=== PATIENT | female | born 1950 | race Caucasian/White ===

== ENCOUNTER 2021-09-27 07:08 | Outpatient (CLI) | payer MEDICARE, OTHER, SELFPAY ==
--- NOTE | ~2021-09-27 | XR_ITS ---
XR hand RT min 3V 09/27/2021 07:37 Indication: Hand pain Procedure: 3 views right hand Comparison: No prior studies for comparison. Findings: There is moderate polyarticular osteoarthritis involving the radiocarpal, triscaphe, first CMC, multiple metacarpophalangeal joints and multiple interphalangeal joints. No erosive changes. Impression: 1: Moderate polyarticular osteoarthritis. Reviewed, dictated and finalized at location B. Impression: 1: Moderate polyarticular osteoarthritis.
--- NOTE | ~2021-09-27 | XR_ITS ---
XR foot LT min 3V 09/27/2021 07:37 Indication: Foot pain Procedure: 4 views left foot Comparison: No prior studies for comparison. Findings: There is polyarticular osteoarthritis, most advanced at the first MTP joint. There is a sma ll degenerative calcaneal enthesophyte. Lisfranc joint intact. No acute fracture or traumatic malalig nment. There are surgical changes consistent with previous hallux valgus repair. Impression: 1: Mild-moderate polyarticular osteoarthritis. Reviewed, dictated and finalized at location B. Impression: 1: Mild-moderate polyarticular osteoarthritis.
--- NOTE | ~2021-09-27 | XR_ITS ---
XR hand LT min 3V 09/27/2021 07:37 Indication: Hand pain Procedure: 3 views left hand Comparison: No prior studies for comparison. Findings: There is moderate polyarticular osteoarthritis involving the radiocarpal, triscaphe, first CMC, multiple metacarpophalangeal joints and multiple interphalangeal joints. No erosive changes. No fracture or traumatic malalignment. No significant soft tissue abnormality. Impression: 1: Moderate-severe polyarticular osteoarthritis. Reviewed, dictated and finalized at location B. Impression: 1: Moderate-severe polyarticular osteoarthritis.
== END 2021-09-27 07:09 | disposition home or self-care (01) ==
LOC: ANHIMG 07:19
PROVIDERS: PCP Family Medicine; Visit Provider Family Medicine
DX: Z78.0 Asymptomatic menopausal state (principal); M19.041 Primary osteoarthritis, right hand; M19.042 Primary osteoarthritis, left hand; M19.072 Primary osteoarthritis, left ankle and foot
CPT/HCPCS: 73130; 73630; 92557; 92567

== ENCOUNTER 2021-09-27 07:46 | Outpatient (CLI) | payer MEDICARE, OTHER, SELFPAY | END 2021-09-27 07:47 | disposition home or self-care (01) | LOC: ANHAUDIO 07:49 | PROVIDERS: PCP Family Medicine; Visit Provider Otolaryngology | DX: H91.93 Unspecified hearing loss, bilateral (principal) | CPT/HCPCS: 92557; 92567 ==

== ENCOUNTER 2021-11-07 06:53 | Outpatient (CLI) | payer MEDICARE, OTHER, SELFPAY ==
--- NOTE | ~2021-11-07 | XR_ITS ---
XR lumbar spine 2-3V DATE: 11/07/2021 07:19 INDICATION: Low back pain. Neck pain. TECHNIQUE: AP, lateral, coned lateral lumbosacral views COMPARISON: None FINDINGS: There is osteopenia. Mild rotatory levoscoliosis of the lumbar spine. There is moderate degenerative disc disease at L1-2, L2-3. Mild degenerative disease at middle grade 1 anterolisthesis at L3-4. Moderate degenerative disc disease at L4-5 and L5-S1, with slight L4-5 anterolisthesis. Degenerative changes apophyseal joints. The lumbar pedicles appear intact. The sacroiliac joints appear unremarkable except for degenerative change. Osteitis pubis. IMPRESSION: Osteopenia Mild rotatory levoscoliosis Multilevel degenerative disc disease Degenerative changes apophyseal joints with associated minimal anterolisthesis at L3-4, slight landon listhesis at L4-5 Osteitis pubis Reviewed, dictated and finalized at location B. IMPRESSION: Osteopenia Mild rotatory levoscoliosis Multilevel degenerative disc disease Degenerative changes apophyseal joints with associated minimal anterolisthesis at L3-4, slight anterolisthesis at L4-5 Osteitis pubis
--- NOTE | ~2021-11-07 | XR_ITS ---
XR cervical spine 4-5V DATE: 11/07/2021 07:19 INDICATION: Neck pain. No injury. TECHNIQUE: AP, open-mouth, lateral, swimmer views COMPARISON: None FINDINGS: There is osteopenia. There is mild levoscoliosis of the cervical spine. There is mild loss of interspace height at C4-5. Moderately severe degenerative disc disease at C5-6 with mild retrolisthesis at this level. Moderately prominent degenerative disease at C6-7. There is prominent degenerative change at the apophyseal joints throughout the cervical spine. Uncovertebral joint spurring is noted in the mid and lower cervical spine, particularly at C5-6. No fracture or dislocation or locked facet or prevertebral soft tissue swelling. IMPRESSION: Cervical spondylosis including multilevel degenerative disc disease, most pronounced at C 5-6, with mild retrolisthesis at this level, as well as prominent degenerative change at the apophyse al and uncovertebral joints Reviewed, dictated and finalized at location B. IMPRESSION: Cervical spondylosis including multilevel degenerative disc disease , most pronounced at C5-6, with mild retrolisthesis at this level, as well as p rominent degenerative change at the apophyseal and uncovertebral joints
== END 2021-11-07 06:54 | disposition home or self-care (01) ==
PROVIDERS: PCP Family Medicine; Visit Provider Family Medicine
DX: M85.88 Other specified disorders of bone density and structure, other site (principal); M51.36 Other intervertebral disc degeneration, lumbar region; M47.892 Other spondylosis, cervical region; M50.30 Other cervical disc degeneration, unspecified cervical region
CPT/HCPCS: 72050; 72100

== ENCOUNTER → 2022-01-07 13:12 | Outpatient (CLI) | payer MEDICARE, OTHER, SELFPAY ==
--- NOTE | ~2022-01-07 | MM_ITS ---
EXAMINATION: MM screening [facility] BI w izabel HISTORY: Screening mammogram TECHNIQUE: Craniocaudal and mediolateral oblique 3-D tomosynthesis images were obtained and synthetic 2-D images were generated. CAD analysis was submitted and interpreted. COMPARISON: 10/22/2018, 10/29/2017, 03/31/2016 BREAST PARENCHYMAL COMPOSITION: There are scattered areas of fibroglandular density. FINDINGS: There is no suspicious mass, calcification, or architectural distortion to suggest malignan cy in either breast. There has been no suspicious interval change. IMPRESSION: 1. No mammographic evidence of malignancy. 2. Recommend routine screening mammography in one year. BI-RADS Category 1: Negative Reviewed, dictated and finalized at location A.
--- NOTE | ~2022-01-07 | DEXA_ITS ---
Bone Density Report Name: CAROL NAVA Age: 71 Sex: Female Ethnicity: White Date of : 1950 Indication: osteopenia; height loss; hysterectomy;postmenopausal Referring Provider: LARS, RAISA Banda Study: Bone densitometry was performed. Exam Date: January 07, 2022 Accession number: [id number] Bone Density: Region BMD T-score Z-score Classification AP Spine (L1-L4) 0.925 -1.1 1.2 Osteopenia Femoral Neck (Left) 0.555 -2.6 -0.7 Osteoporosis Total Hip (Left) 0.650 -2.4 -0.7 Osteopenia Femoral Neck (Right) 0.622 -2.0 -0.1 Osteopenia Total Hip (Right) 0.699 -2.0 -0.3 Osteopenia Total Hip Mean 0.675 -2.2 -0.5 Osteopenia World Health Organization criteria for BMD impression classify patients as: Normal (T-score at or above -1.0), Osteopenia (T-score between -1.0 and -2.5), or Osteoporosis (T-score at or below -2.5). 10-year Fracture Risk: FRAX not reported because: Some T-score for Spine Total or Hip Total or Femoral Neck at or below -2.5 Previous Exams: Region Exam Age BMD T-score BMD Change BMD Change Date g/cm2 vs Baseline vs Previous AP Spine(L1-L4) 01/07/2022 71 0.925 -1.1 -0.035* -0.032* 10/22/2018 67 0.957 -0.8 -0.003 -0.003 03/15/2016 65 0.960 -0.8 Total Hip(Left) 01/07/2022 71 0.650 -2.4 -0.062* -0.040* 10/22/2018 67 0.691 -2.1 -0.022 -0.022 03/15/2016 65 0.713 -1.9 Total Hip(Right) 01/07/2022 71 0.699 -2.0 -0.058* -0.040* 10/22/2018 67 0.739 -1.7 -0.018 -0.018 03/15/2016 65 0.757 -1.5 *Denotes significance at 95% confidence level, LSC for AP Spine = 0.022 g/cm2, LSC for Total Hip = 0.027 g/cm2 Clinical Information Provided by Patient: Has used the following medications: Vitamin D, Calcium Has the following medical conditions: Hysterectomy Patient maximum height was 60 Menopause Age: 46 No regular weight bearing exercise Drinks caffeinated beverages Onset of menses at age 10 Number of children 4 Impression: The patient has osteoporosis, based on the Left Femoral Neck T-score. The BMD for the AP Spine(L1-L4) decreased, changing by -0.032 since the last DXA exam. The BMD for the Total Hip(Left) decreased, changing by -0.040 since the last DXA exam. The BMD for the Total Hip(Right) decreased, changing by -0.040 since the last DXA exam. Discussion: INCREASED RISK OF FRACTURE. BONE DENSITY IS UNDESIRABLY LO
== END ==
PROVIDERS: PCP Family Medicine; Visit Provider Family Medicine
DX: Z12.31 Encounter for screening mammogram for malignant neoplasm of breast (principal); Z78.0 Asymptomatic menopausal state; M85.88 Other specified disorders of bone density and structure, other site; M81.0 Age-related osteoporosis without current pathological fracture; M85.852 Other specified disorders of bone density and structure, left thigh; M85.851 Other specified disorders of bone density and structure, right thigh
CPT/HCPCS: 77063; 77067; 77080

== ENCOUNTER 2022-05-08 10:09 | Outpatient (CLI) | payer MEDICARE, OTHER, SELFPAY ==
--- NOTE | ~2022-05-08 | US_ITS ---
Procedure: Duplex Doppler examination of the bilateral carotids. Indication: Fatigue, carotid bruit Technique: Real time, color-flow and pulse wave Doppler examination of the bilateral carotids was performed. Findings: Watson scale ultrasonography of the right neck demonstrated no significant plaque. There was demonstrat ion of normal color-flow and Doppler waveforms within the right common, internal and external carotid arteries. The peak systolic velocities in the right common, internal and external carotid arteries w ere demonstrated to be 68 cm/sec, 73 cm/sec and 70 cm/sec respectively. The right ICA/CCA ratio was 1 .1.The proximal right internal carotid artery demonstrates 0% stenosis relative to the normal distal artery lumen diameter. Watson scale sonography of the left neck demonstrated no significant plaque. There was demonstration of normal color-flow and wave forms within the left common, internal and external carotid arteries. The peak systolic velocities in the left common, internal and external carotid arteries were demonstrate d to be 75cm/sec, 56 cm/sec and 61 cm/sec respectively. The left ICA/CCA ratio was 0.7. The proximal left internal carotid artery demonstrates 0% stenosis relative to the normal distal artery lumen diam eter. There was antegrade flow demonstrated in the bilateral vertebral arteries. Impression: No hemodynamically significant stenosis of the bilateral internal carotid arteries. Antegrade flow in the bilateral vertebral arteries. Note: The methodology used is an indirect measurement validated against a direct method (such as the NASCET criteria) that compares diameters at the stenosis to the distal ICA. Reviewed, dictated and finalized at location . ATING ROOM ORDERLY Impression: No hemodynamically significant stenosis of the bilateral internal carotid arter ies. Antegrade flow in the bilateral vertebral arteries. Note: The methodology used is an indirect measurement validated against a direct meth od (such as the NASCET criteria) that compares diameters at the stenosis to the distal ICA.
== END 2022-05-08 10:10 | disposition home or self-care (01) ==
PROVIDERS: PCP Family Medicine; Visit Provider Family Medicine
DX: R53.83 Other fatigue (principal); R42 Dizziness and giddiness; R06.09 Other forms of dyspnea
CPT/HCPCS: 93880

== ENCOUNTER 2022-05-20 08:14 | Outpatient (CLI) | payer MEDICARE, OTHER, SELFPAY ==
--- NOTE | 2022-05-20 | EST_ITS ---
Patient Info Name: Heather Sibley Age: 71 years : 1950 Gender: Female Ht: 59 in Wt: 150 lbs BSA: 1.71 m2 HR: 62 bpm BP: 136 / 86 mmHg Technical Quality: Good Exam Date: 05/20/2022 8:55 AM Exam Location: [facility] Patient Status: Outpatient Admit Date: 05/20/2022 Staff Ordering Physician: Amaya, Latonia Banda MD Dental Hygienist: Cuca Pritchett RDCS Attending Provider: elina jennings np Referring Physician: Amaya WHITE; Exercise Technologist: Naomi Deng CT Nurse: DEB MCCAIN Exam Type: CA stress echo Study Info Indications - FATIGUE LOPEZ Treadmill exercise stress echocardiogram is performed. Summary 1. Abnormal marcus stress test for ischemic ST changes by ECG criteria. 2. The stress echocardiographic imaging is normal was good augmentation of all wall segments post-stress without obvious wall motion abnormalities. 3. No exercise-induced chest pain. 4. Good exercise capacity for age. 5. Hypertensive blood pressure response. Stress Echo Findings Left Ventricle Normal left venticular systolic function with no regional wall motion abnormalities noted at rest. No regional wall motion abnormalities noted at rest. Left ventricular wall thickness is mildly increased. Left ventricular end systolic volume decreases post stress. Overall global left ventricular systolic function Improved post stress. No regional wall motion abnormalities noted post stress. Normal augmentation of all wall segments without evidence of ischemia with stress. Right Ventricle Right ventricular chamber dimension is normal. Right ventricular systolic function is normal. Right ventricular chamber dimension is normal. Right ventricular systolic function is normal. Left Atria Left atrial chamber dimension is mildly enlarged. Left atrial chamber dimension is mildly enlarged. Right Atria Right atrial chamber dimension is normal. Right atrial chamber dimension is normal. Protocol: Marcus Stress ECG Details Stage: REST Duration (min): 0 min : 54 sec Speed (mph): 0.0 Grade (%): 0 HR (bpm): 73 SBP (mmHg): 136 DBP (mmHg): 86 METS: --- Stage: STAGE 1 Duration (min): 1 min : 0 sec Speed (mph): 1.7 Grade (%): 10 HR (bpm): 97 SBP (mmHg): 136 DBP (mmHg): 86 METS: --- Stage: STAGE 1 Duration (min): 2 min : 0 sec Speed (mph): 1.7 Grade (%): 10 HR (bpm): 103 SBP (mmHg): 136 DBP (mmHg): 86 METS: --- Stage: STAGE 1 Duration (min): 3 min : 0 sec Speed (mph): 1.7 Grade (%): 10 HR (bpm): 105 SBP (mmHg): 136 DBP (mmHg): 86 METS: --- Stage: STAGE 2 Duration (min): 1 min : 0 sec Speed (mph): 2.5 Grade (%): 12 HR (bpm): 116 SBP (mmHg): 166 DBP (mmHg): 100 METS: --- Stage: STAGE 2 Duration (min): 2 min : 0 sec Speed (mph): 2.5 Grade (%): 12 HR (bpm): 124 SBP (mmHg): 214 DBP (mmHg): 105 METS: --- Stage: STAGE 2 Duration (min): 3 min : 0 sec Speed (mph): 2.5 Grade (%): 12 HR (bpm): 130 SBP (mmHg): 214 DBP (mmHg): 105 METS: --- Sta
== END 2022-05-20 08:15 | disposition home or self-care (01) ==
LOC: ANHCARD 08:18
PROVIDERS: PCP Family Medicine; Visit Provider Family Medicine
DX: R53.83 Other fatigue (principal); R42 Dizziness and giddiness; R06.09 Other forms of dyspnea
CPT/HCPCS: 93351

== ENCOUNTER 2022-09-06 09:27 | Outpatient (CLI) | payer MEDICARE, OTHER, SELFPAY ==
--- NOTE | ~2022-09-06 | CT_ITS ---
CT Scan of the Chest without Contrast: Clinical Indication: Abnormal CT Technique: Contiguous sections were acquired throughout the chest without intravenous contrast. Dose reduction technique was used on this scan by utilizing automated exposure control and iterative recon struction technique. The dose-length product (DLP) was 122.29 mGy-cm. Findings: There is no evidence of any significant mediastinal, hilar or axillary lymphadenopathy. The mediastin al soft tissues appear normal. There is no evidence of pleural or pericardial effusion. There is mild subpleural reticulation, with upper lobe predominance, left worse than right. No suspic ious pulmonary nodule evident. Images through the upper abdomen reveal no abnormalities. Impression: Mild subpleural reticulation, as noted above. Findings could reflect mild chronic interstitial diseas e or other postinflammatory change. Reviewed, dictated and finalized at [facility]. Impression: Mild subpleural reticulation, as noted above. Findings could reflect mild chron ic interstitial disease or other postinflammatory change.
== END 2022-09-06 09:28 | disposition home or self-care (01) ==
LOC: ANHIMG 09:33
PROVIDERS: PCP Family Medicine; Visit Provider Family Medicine
DX: J84.89 Other specified interstitial pulmonary diseases (principal)
CPT/HCPCS: 71250

== ENCOUNTER 2022-10-09 14:00 | Outpatient (RCR) | payer MEDICARE, OTHER, SELFPAY | END 2022-10-09 23:59 | disposition home or self-care (01) | LOC: ANHAUDIO 14:00 | PROVIDERS: PCP Family Medicine; Visit Provider Otolaryngology | DX: Z46.1 Encounter for fitting and adjustment of hearing aid (principal) | CPT/HCPCS: 99199; V5261 ==

== ENCOUNTER 2022-10-23 18:07 | Outpatient (CLI) | payer MEDICARE, OTHER, SELFPAY ==
--- NOTE | 2022-10-23 11:00 | NEURO_ITS ---
Impression: # Complains of numbness of hands with nocturnal paresthesia. # Bilateral Carpal Tunnel Syndrome. # No ulnar neuropathy. # Normal needle/EMG exam. Nerve Conduction Studies Anti Sensory Summary Table Stim Site NR Peak (ms) P-T Amp (?V) Site1 Site2 Delta-P (ms) Dist (cm) Amadeo (m/s) Left Median Anti Sensory (2-3nd Digit) Wrist 4.3 15.5 Wrist 2-3nd Digit 4.3 14.0 33 Wrist 4.2 16.8 Wrist 2-3nd Digit 4.3 14.0 33 Right Median Anti Sensory (2-3nd Digit) Wrist 3.6 18.0 Wrist 2-3nd Digit 3.6 14.0 39 Wrist 3.5 6.0 Wrist 2-3nd Digit 3.6 14.0 39 Left Radial Anti Sensory (Base 1st Digit) Wrist 2.1 24.4 Wrist Base 1st Digit 2.1 0.0 Right Radial Anti Sensory (Base 1st Digit) Wrist 2.3 5.0 Wrist Base 1st Digit 2.3 0.0 Left Ulnar Anti Sensory (5th Digit) Wrist 2.6 24.2 Wrist 5th Digit 2.6 14.0 54 Right Ulnar Anti Sensory (5th Digit) Wrist 2.5 27.4 Wrist 5th Digit 2.5 14.0 56 Motor Summary Table Stim Site NR Onset (ms) O-P Amp (mV) Site1 Site2 Delta-0 (ms) Dist (cm) Amadeo (m/s) Left Median Motor (Abd Poll Brev) Wrist 4.3 4.9 Elbow Wrist 4.3 24.0 56 Elbow 8.6 2.7 Right Median Motor (Abd Poll Brev) Wrist 3.8 5.1 Elbow Wrist 4.5 24.0 53 Elbow 8.3 3.7 Left Ulnar Motor (Abd Dig Minimi) Wrist 2.7 2.6 A Elbow Wrist 4.9 26.0 53 A Elbow 7.6 1.2 Right Ulnar Motor (Abd Dig Minimi) Wrist 2.3 7.0 A Elbow Wrist 4.7 25.0 53 A Elbow 7.0 5.4 F Wave Studies NR F-Lat (ms) L-R F-Lat (ms) Left Median (Mrkrs) (Abd Poll Brev) 28.69 2.16 Right Median (Mrkrs) (Abd Poll Brev) 26.53 2.16 Left Ulnar (Mrkrs) (Abd Dig Min) 27.97 1.10 Right Ulnar (Mrkrs) (Abd Dig Min) 26.88 1.10 EMG Side Muscle Nerve Root Ins Act Fibs Amp Dur Recrt Comment Right 1stDorInt Ulnar C8-T1 Nml Nml Nml Nml Nml Right Ext Indicis Radial (Post Int) C7-8 Nml Nml Nml Nml Nml Right Ext Digitorum Radial (Post Int) C7-8 Nml Nml Nml Nml Nml Right BrachioRad Radial C5-6 Nml Nml Nml Nml Nml Right PronatorTeres Median C6-7 Nml Nml Nml Nml Nml Right Abd Poll Brev Median C8-T1 Nml Nml Nml Nml Nml Left 1stDorInt Ulnar C8-T1 Nml Nml Nml Nml Nml Left Ext Indicis Radial (Post Int) C7-8 Nml Nml Nml Nml Nml Left Ext Digitorum Radial (Post Int) C7-8 Nml Nml Nml Nml Nml Left BrachioRad Radial C5-6 Nml Nml Nml Nml Nml Left PronatorTeres Median C6-7 Nml Nml Nml Nml Nml Left Abd Poll Brev Median C8-T1 Nml Nml Nml Nml Nml Right ABD Dig Min Ulnar C8-T1 Nml Nml Nml Nml Nml Left ABD Dig Min Ulnar C8-T1 Nml Nml Nml Nml Nml MTDD
--- NOTE | 2022-10-24 07:21 | PCNEURO ---
Paper documentation exists on this patient due to [employer] downtime on 10/23/22 from to 00:30-19:30.
== END 2022-10-23 18:08 | disposition home or self-care (01) ==
LOC: ANHNEURO 18:07
PROVIDERS: PCP Family Medicine; Visit Provider Family Medicine
DX: G56.03 Carpal tunnel syndrome, bilateral upper limbs (principal)
CPT/HCPCS: 95886; 95911

== ENCOUNTER 2023-10-03 08:52 | Emergency (ER) | payer MEDICARE, OTHER, SELFPAY ==
--- NOTE | ~2023-10-03 | XR_ITS ---
Left Knee Technique: AP, lateral, and sunrise views were obtained. Clinical History: Pain and swelling Findings: No fracture or dislocation is seen. Osseous alignment is anatomic. Minimal tricompartmental degenerative spurring noted. Soft tissues are unremarkable. No joint effusion is seen. Impression: Minimal tricompartmental degenerative spurring. Reviewed, dictated and finalized at [facility]. Impression: Minimal tricompartmental degenerative spurring.
--- NOTE | 2023-10-03 09:08 | ED.LOWEXIN ---
HPI - Extremity Injury (Lower) General Chief Complaint: Extremity Injury, Lower Stated Complaint: Left Knee Injury Time Seen by Provider: 10/03/23 09:08 Source: patient Mode of arrival: ambulatory Limitations: no limitations History of Present Illness HPI Narrative: 72-year-old female presents with complaint of left knee pain. Patient states she was cutting grass, pushing a lawnmower, and twisted left knee in a hole in her yard. Ambulatory with slight limp. Patient reports mild swelling. No previous pain to left knee. Range of motion decreased due to pain, distal neurovascularly intact. All systems reviewed and negative except as noted above. Related Data Home Medications Medication Instructions Recorded Confirmed No Home Medications 10/23/21 10/03/23 Allergies Allergy/AdvReac Type Severity Reaction Status Date / Time codeine Allergy Mild Nausea Verified 10/03/23 09:11 alendronate sodium Allergy Unknown GI issues Verified 10/03/23 09:11 Review of Systems Review of Systems: CONSTITUTIONAL: Denies fever, chills, or sweats. EYES: Denies visual changes, redness, or discharge. ENT: Denies rhinorrhea, congestion, sore throat, or otalgia. CARDIOVASCULAR: Denies chest pain, palpitations, or edema. RESPIRATORY: Denies cough or dyspnea. GASTROINTESTINAL: Denies abdominal pain, nausea, vomiting, or diarrhea. GENITOURINARY: Denies dysuria or hematuria. SKIN: Denies rash or itching. MUSCULOSKELETAL: Pain and swelling to left knee. NEUROLOGIC: Denies headache, numbness, or weakness. PSYCHIATRIC: Denies anxiety or depression. All other systems reviewed are negative, except as documented in HPI. FORMERLY [facility] Surgical History Surgical History History of bunionectomy History of ear surgery History of foot surgery Family History Family History Father Family history of coronary artery disease Sibling Family history of coronary artery disease Other Breast cancer Depression Diabetes mellitus Heart disease Uterine cancer Social History Social History Smoking status: Never smoker Second hand tobacco smoke exposure: No Alcohol intake: former Alcohol use details: social drinker Substance use: never Substance use type: does not use Living arrangements: with family Occupation/Education: retired Gender identity (if verbalized by the patient): Female Comments At time of signature, agree with nursing past medical, surgical, social and family history. There is no relevant family history pertinent to the presenting complaint. Exam Narrative: GENERAL: This is a well-nourished, well-developed patient, in no apparent distress. HEAD: normocephalic, atraumatic. EYES: PERRL. Sclera clear/white. Vision is grossly intact. EARS: External ears normal NOSE: External nose normal NECK: Neck supple, non-tender without lymphadenopathy, masses or thyromegaly. CARDIOVASCULAR: Regular rate and rhythm without murmurs, gallops, or rubs. RESPIRATORY: Clear to auscultation. Breath sounds equal bilaterally. No wheezes, rales, or rhonchi. SKIN: warm, Dry, intact with no suspicious lesions or rash, good texture and turgor. NEURO: awake, alert, and oriented to person, place and time. There were no obvious focal neurologic abnormalities. EXTREMITIES: Mild swelling to left knee. No deformity. Tenderness to medial aspect of left knee. Range of motion slightly decreased due to pain. Course Course Level of Care: Express Care Visit Vital Signs Vital signs: Reviewed MDM - Extremity Injury (Lower) MDM Narrative Medical decision making narrative: Patient is aware of diagnosis, understands and agrees to treatment plan. Anticipatory guidance given. Patient agrees to follow-up as directed and is aware of reasons to seek care at the emergen
== END 2023-10-03 09:54 | disposition home or self-care (01) ==
PROVIDERS: Emergency Provider Nurse Practitioner Family; PCP Internal Medicine
DX: S83.92XA Sprain of unspecified site of left knee, initial encounter (principal); X50.9XXA Other and unspecified overexertion or strenuous movements or postures, initial encounter
CPT/HCPCS: 73562; 99213; G0463

== ENCOUNTER 2023-11-26 15:31 | Outpatient (CLI) | payer MEDICARE, OTHER, SELFPAY ==
--- NOTE | ~2023-11-26 | CT_ITS ---
EXAMINATION: CT sinus wo con DATE: 11/26/2023 15:57 INDICATION: Chronic sinusitis TECHNIQUE: Computed tomography (CT) of the paranasal sinuses was performed without intravenous contra st. The dose-length product was 290.62 mGy-cm. Automated exposure control and iterative reconstructio n technique were employed. COMPARISON: None FINDINGS: There is mild mucosal thickening of the maxillary sinuses. No significant nasal septal rom ation. There is patency of the ostiomeatal units. No air-fluid levels. No mucoperiosteal reaction. Ma stoids are pneumatized. IMPRESSION: 1. Mild maxillary sinus disease. Reviewed, dictated and finalized at location B.
== END 2023-11-26 15:32 ==
LOC: MICIMG 15:33
PROVIDERS: PCP Internal Medicine; Visit Provider Internal Medicine
DX: J32.0 Chronic maxillary sinusitis (principal)
CPT/HCPCS: 70486

== ENCOUNTER 2023-12-23 07:53 | Outpatient (CLI) | payer MEDICARE, OTHER, SELFPAY ==
--- NOTE | ~2023-12-23 | MR_ITS ---
EXAMINATION: MR IAC wo/w con DATE: 12/23/2023 08:50 INDICATION: Sensorineural hearing loss. Dizziness. Loss of balance. TECHNIQUE: Magnetic resonance imaging (MRI) of the brain, brainstem, and internal auditory canals was performed without and with 12 mL MultiHance intravenous contrast. COMPARISON: Sinuses CT 11/26/2023 FINDINGS: There is no intracranial hemorrhage, acute infarction, or abnormal intracranial mass lesion . There are scattered areas of nonspecific increased T2-weighted signal intensity in the cerebral whi te matter, which is within normal limits for the patient's age. The ventricles are normal in size. T he paranasal sinuses are clear. The mastoid air cells are normal. The internal auditory canals, inner ears, and tympanic cavities are normal. IMPRESSION: 1. Normal aging brain. Reviewed, dictated and finalized at location A. IMPRESSION: 1. Normal aging brain.
== END 2023-12-23 07:54 | disposition home or self-care (01) ==
PROVIDERS: PCP Internal Medicine
DX: H90.3 Sensorineural hearing loss, bilateral (principal); R42 Dizziness and giddiness; R26.89 Other abnormalities of gait and mobility
CPT/HCPCS: 70553; A9577

== ENCOUNTER 2024-02-26 07:44 | Outpatient (CLI) | payer MEDICARE, OTHER, SELFPAY ==
--- NOTE | ~2024-02-26 | MM_ITS ---
EXAMINATION: MM screening [facility] BI w izabel HISTORY: Screening TECHNIQUE: Craniocaudal and mediolateral oblique 3-D tomosynthesis images were obtained and synthetic 2-D images were generated. CAD analysis was submitted and interpreted. COMPARISON: Comparison to multiple prior studies sequentially, with oldest reviewed study dated 05/2017. BREAST PARENCHYMAL COMPOSITION: Not dense: There are scattered areas of fibroglandular density. FINDINGS: There is no evidence of suspicious mass, calcification, or architectural distortion to sugg est malignancy in either breast. There has been no suspicious interval change. IMPRESSION: 1. No mammographic evidence of malignancy. 2. Recommend routine screening mammography in one year. BI-RADS Category 1: Negative Reviewed, dictated and finalized at location B.
== END 2024-02-26 07:45 | disposition home or self-care (01) ==
PROVIDERS: PCP Internal Medicine; Visit Provider Internal Medicine
DX: Z12.31 Encounter for screening mammogram for malignant neoplasm of breast (principal)
CPT/HCPCS: 77063; 77067

== ENCOUNTER 2024-04-01 09:59 | Outpatient (CLI) | payer MEDICARE, OTHER, SELFPAY ==
--- NOTE | ~2024-04-01 | DEXA_ITS ---
Bone Density Report Name: CAROL NAVA Age: 73 Sex: Female Ethnicity: White Date of : 1950 Indication: postmenopausal; screening for osteoporosis; height loss; hysterectomy; rheumatoid arthritis; Referring Provider: ABDIEL LOBO Study: Bone densitometry was performed. Exam Date: April 01, 2024 Accession number: [id number] Bone Density: Region BMD T-score Z-score Classification AP Spine(L1-L4) 0.736 -2.8 -0.4 Osteoporosis Femoral Neck (Left) 0.506 -3.1 -1.0 Osteoporosis Total Hip (Left) 0.635 -2.5 -0.7 Osteoporosis Femoral Neck (Right) 0.590 -2.3 -0.2 Osteopenia Total Hip (Right) 0.679 -2.2 -0.4 Osteopenia Femoral Neck Mean 0.548 -2.7 -0.6 Osteoporosis Total Hip Mean 0.657 -2.3 -0.5 Osteopenia World Health Organization criteria for BMD impression classify patients as: Normal (T-score at or above -1.0), Osteopenia (T-score between -1.0 and -2.5), or Osteoporosis (T-score at or below -2.5). 10-year Fracture Risk: FRAX not reported because: Some T-score for Spine Total or Hip Total or Femoral Neck at or below -2.5 Clinical Information Provided by Patient: Has rheumatoid arthritis Has used the following medications: Vitamin D, Calcium Has the following medical conditions: Hysterectomy Patient maximum height was 60 Menopause Age: 48 Drinks caffeinated beverages Onset of menses at age 10 Number of children 4 Impression: The patient has osteoporosis, based on the Left Femoral Neck T-score. Discussion: INCREASED RISK OF FRACTURE. BONE DENSITY IS UNDESIRABLY LOW AT ONE OR MORE SKELETAL SITES, CONSISTENT WITH POSTMENOPAUSAL OSTEOPOROSIS. This patient's lowest T-score meets the World Health Organization's (WHO) criteria for osteoporosis at one or more sites (T-score -2.5 or below). In untreated patients, the risk of osteoporotic fracture increases approximately two-fold for each 1.0 SD decrease in T-score. Low bone density is not the only risk factor for fracture; also consider factors such as patient's age, frailty or poor health, risk of falling, risk of injury, previous osteoporotic fracture, family history of osteoporosis, cigarette smoking, low body weight, etc. Not everyone with low bone mineral density has osteoporosis; osteomalacia and other metabolic bone disorders should also be considered. Patients who have osteoporosis should be evaluated for specific diseases and conditions (secondary causes) that may cause or contribute to bone loss. The [place] Association [employer] Clinical Endocrinologists (AACE) and National Osteoporosis Foundation (NOF) recommend pharmacologic intervention for all postmenopausal women whose T-score is in this range. The patient should follow a healthful lifestyle (good nutrition with adequate calcium and vitamin D, and appropriate weight-bearing exercise). Follow-Up: Consider a repeat BMD and Vertebral Fracture Assessment (VFA) exam in 2 years or sooner if medically necessary, to reassess this patient's status. Reported by: YAA on 04/01/2024 10:27:00 AM. Reviewed, dictated and finalized at location A.
== END 2024-04-01 10:00 | disposition home or self-care (01) ==
PROVIDERS: PCP Internal Medicine; Visit Provider Internal Medicine
DX: Z78.0 Asymptomatic menopausal state (principal); M85.89 Other specified disorders of bone density and structure, multiple sites; M81.0 Age-related osteoporosis without current pathological fracture
CPT/HCPCS: 77080

== ENCOUNTER 2024-07-13 14:02 | Outpatient (CLI) | payer MEDICARE, OTHER, SELFPAY | END 2024-07-13 14:03 | disposition home or self-care (01) | LOC: ANHNEURO 14:05 | PROVIDERS: PCP Internal Medicine; Visit Provider Internal Medicine | DX: R20.0 Anesthesia of skin (principal); G56.03 Carpal tunnel syndrome, bilateral upper limbs | CPT/HCPCS: 95886; 95911 ==

== ENCOUNTER 2024-09-28 08:53 | Outpatient (CLI) | payer MEDICARE, OTHER, SELFPAY ==
--- OUTSIDE RECORDS SUMMARY | 2024-09-28 09:08 | XMS_ITS | CONTINUITY OF CARE DOCUMENT ---
Author Name elbaalexander elbaalexander Address Unknown Organization [facility] Address [id number] [place] [address] [address] [place] [address] Phone [phone] Care Team Providers Care Stave Log Ripsaw Operator Name Role Phone Sohan Yarbrough MD Unavailable [phone] RAISA SOUSA MD Unavailable RAISA SOUSA MD Unavailable PROBLEMS Condition Status Date Provider Notes Cardiology examination active Sohan Alejandra arthritis active Sohan Yarbrough MD Light headedness active Sohan Yarbrough MD Fatigue active Sohan Yarbrough MD Dyspnea active Yolanda Becker Abnormal stress electrocardiogram active Ashvin Becker ENCOUNTERS Date Type Provider Location Encounter Diag nosis - In-person encounter Office Visit Sohan Yarbrough MD [facility] - In-person encounter Office Visit Sohan Yarbrough MD [facility] Abnormal stress electrocardiogram - In-person encounter Office Visit Sohan Yarbrough MD [facility] Cardiology examinationarthritisLight headednessFatigueDyspnea VITAL SIGNS Date Observation Value Provider Body Mass Index (Ratio) 28.48 kg/m2 Yessy Beckham blood pressure, diastolic 83 mm[Hg] Mi anna Ya blood pressure, systolic 131 mm[Hg] Kyle max Ya oxygen saturation, oximetry 96 % Ashly Ya pulse rate 82 /min Ashly Grace alejandra weight E&M 141 [lb_av] Ashly Grace alejandra respiratory rate E&M 16 /min Apple lal Ames blood pressure, cuff size regular Maddy castillo Ya height E&M 59 [in_i] Ashly Grace alejandra Body Mass Index (Ratio) 30.49 kg/m2 Dyana chris Becker blood pressure, cuff size regular Mendze rrvanessa Gopi blood pressure, diastolic 70 mm[Hg] Ke rri [facility] blood pressure, systolic 122 mm[Hg] Johana riley Gopi oxygen saturation, oximetry 96 % Sindy Gopi respiratory rate E&M 14 /min Sindy Skinny edouard pulse rate 86 /min Sindy Carlin [facility] weight E&M 151 [lb_av] Sindy Raphaeldanettee [facility] height E&M 59 [in_i] Sindy Carlinnfe [facility] Body Mass Index (Ratio) 31.30 kg/m2 Dyana riversflorecita Becker blood pressure, diastolic 87 mm[Hg] An donald Moore blood pressure, systolic 123 mm[Hg] Sloane Moore height E&M 59 [in_i] Mariah Moore blood pressure, cuff size large An donald Moore oxygen saturation, oximetry 97 % Mariah Moore pulse rate 65 /min Mariah Moore weight E&M 155 [lb_av] Mariah Moore ALLERGIES Allergy Name Onset Date Reaction Criticality Status CODIENE High Criticality active HISTORY OF MEDICATION USE Medication Status Instructions Dates Provider Indications Com ments diclofenac sodium 75 mg tablet,delayed release (/EC) active Sohan Yarbrough MD omeprazole 40 mg capsule,delayed release(DR/EC) active Sohan Yarbrough MD escitalopram oxalate 5 mg tablet active Sohan Yarbrough MD sulfasalazine 500 mg tablet,delayed release (DR/EC) active Sohan Yarbrough MD SOCIAL HISTORY Date Observation Value Provider social history E&M S moking History: Denis mcfarland has never smoked. Benji Beckham social history reviewed E&M revi ewed - no changes required Benji Beckham smoking status Never smoker Ashly Erwin and social history E&M S moking History: Denis mcfarland has never smoked. Yolanda Becker social history reviewed E&M revi ewed - no changes required Yolanda Becker smoking status Never smoker Sindy Fransisco lipscomb social history E&M S moking History: Denis mcfarland has never smoked. Sohan Yarbrough MD social history reviewed E&M revi ewed - no changes required Sohan Yarbrough MD smoking status Never smoker Mariah Moore FUNCTIONAL STATUS Date Observation Value Provider Reason Fall Assessment not done medical c ontraindication Mariah Moore INSURANCE PROVIDERS Payer name Policy type / Coverage type [employer] party ID [employer] MEDICARE SECONDARY Commercial insurance com pany [id number] [place] MED[place] B Medicare [id number] ADVANCE DIRECTIVES Name Date DISCUSSED - NO DECISION MADE TREATMENT PLAN Date Name Performer [id number],S,C ardiac cath was normal. I recommend statin therapy for LDL of 200 and calcium score of 148. Pt would like to repeat Lipid Panel. She c/o fatigue. Will obtain Home Sleep study. Benji Beckham [id number],C,C T coronary calcium score is 148 in the LAD. Still symptomatic. In view of the above, I recommend cardiac cath (stress echo showed ischemia by EKG but normal by echo criteria). Yolanda Becker [id number],C,C T coronary calcium score is 148 in the LAD. Still symptomatic. In view of the above, I recommend cardiac cath (stress echo showed ischemia by EKG but normal by echo criteria). Yolanda Becker [id number],C,C T coronary calcium score is 148 in the LAD. Still symptomatic. In view of the above, I recommend cardiac cath (stress echo showed ischemia by EKG but normal by echo criteria). Yolanda Becker [id number],C,P t complains of fatigue, dizziness with walking, dyspnea, no chest pain. She states she had normal echo and stress test at [facility]. Will check for orthostatic BP and check telesentry. Will request her tests and review them. Yolanda Becker [id number],C,P t complains of fatigue, dizziness with walking, dyspnea, no chest pain. She states she had normal echo and stress test at [facility]. Will check for orthostatic BP and check telesentry. Will request her tests and review them. Yolanda Becker [id number],C,P t complains of fatigue, dizziness with walking, dyspnea, no chest pain. She states she had normal echo and stress test at [facility]. Will check for orthostatic BP and check telesentry. Will request her tests and review them. Yolanda Ruizgrover Cardiology:Cardiac c ath was normal. I recommend statin therapy for LDL of 200 and calcium score of 148. Pt would like to repeat Lipid Panel. She c/o fatigue. Will obtain Home Sleep study. Benji Beckham Cardiology:CT saldana ry calcium score is 148 in the LAD. Still symptomatic. In view of the above, I recommend cardiac cath (stress echo showed ischemia by EKG but normal by echo criteria). Yolanda Eugenio Cardiology:CT saldana ry calcium score is 148 in the LAD. Still symptomatic. In view of the above, I recommend cardiac cath (stress echo showed ischemia by EKG but normal by echo criteria). Yolanda Becker Cardiology:CT saldana ry calcium score is 148 in the LAD. Still symptomatic. In view of the above, I recommend cardiac cath (stress echo showed ischemia by EKG but normal by echo criteria). Yolanda Becker Cardiology:Pt compla ins of fatigue, dizziness with walking, dyspnea, no chest pain. She states she had normal echo and stress test at [facility]. Will check for orthostatic BP and check telesentry. Will request her tests and review them. Yolanda Becker Cardiology:Pt compla ins of fatigue, dizziness with walking, dyspnea, no chest pain. She states she had normal echo and stress test at [facility]. Will check for orthostatic BP and check telesentry. Will request her tests and review them. Yolanda Becker Cardiology:Pt compla ins of fatigue, dizziness with walking, dyspnea, no chest pain. She states she had normal echo and stress test at [facility]. Will check for orthostatic BP and check telesentry. Will request her tests and review them. Yolanda Becker Date Name Sleep Study Home LIPID PANEL PROTHROMBIN TIME WIT H INR LIPID PANEL CBC (INCLUDES DIFF/P LT) BASIC METABOLIC PANE L W/EGFR Cardiac Cath - Left - [facility] Monitor - Telemetry (Mobile Cardiac) CT, Coronary Calcium Score Monitor - Telemetry (Mobile Cardiac) HISTORY OF PROCEDURES Procedure Date Procedure Name Provider Procedure Notes S tatus CT- Coronary CA score Sohan Yarbrough MD completed EKG Sohan Yarbrough MD completed
--- OUTSIDE RECORDS SUMMARY | 2024-09-28 09:09 | XMS_ITS | Clinical Summary ---
Author Organization [facility] [address] Address [address] [place] [address] Care Team Providers Care Nursing Consultant Name Role Phone Jessy Duron MD Primary Care Provider Allergies Active Allergy Reactions Criticality Noted Date Comments Codeine Nausea only Low 10/09/2017 Medications calcium carbonate (CALCIUM 500 ORAL) Take by mouth Active ascorbic acid (VITAMIN C) 1,000 mg tablet Take 1,000 mg by mouth daily Active cholecalciferol , vitamin D3, (VITAMIN D3 ORAL) Take 250 mg by mouth daily Active terbinafine (LamISIL) 1 % creamIndication s:Tinea pedis of both feet Apply topically 2 (two) times a day 30 g 1 1 Active albuterol HFA (ProAir HFA) 90 mcg/actuation inhalerIndicati ons:Dyspnea on exertion Inhale 2 puffs every 4 (four) hours as needed for wheezing or shortness of breath 8.5 g 5 1 Active rosuvastatin (CRESTOR) 5 mg tablet Take 1 tablet (5 mg total) by mouth daily 30 tablet 5 1 Active Active Problems Problem Noted Date Diagnosed Date Fatigue 07/26/2020 Assessment & Plan (07/26/2020 3:51 PM CDT): Suspect 2/2 VENKAT. - Referring for sleep study as noted - Avoid driving if sleepy Family history of heart disease 07/26/2020 Assessment & Plan (07/26/2020 3:52 PM CDT): Requests referral to physics faculty member today. Joint stiffness of hand, unspecified laterality 07/26/2020 Assessment & Plan (07/26/2020 3:52 PM CDT): Given prolonged AM stiffness, evaluate for inflammatory arthritis today Hyperlipidemia 07/26/2020 Assessment & Plan (07/26/2020 3:54 PM CDT): Intolerant of unspecified statin for unknown reason. More recently on fenofibrate, but she stopped taking this because she does not like to take medications. - Discussed benefits of statins today and that we can almost always find one that can be tolerated. Will await lipid panel Dyspnea on exertion 07/26/2020 Assessment & Plan (07/26/2020 4:03 PM CDT): No abnormal findings on exam. EKG NSR with no concerning abnormalities, but will not charge as V4 lead was not working at the time. TTE 2018 performed for same indication with Normal left ventricular systolic function. No focal wall motion abnormalities.Impaired diastolic relaxation Grade I. Ejection fraction is visually estimated at 60-65 %. Normal right ventricular systolic function. Mild enlargement of right ventricle. NO sig valve abnormalities. - She will see cardiology - Trial albuterol prn. If helpful, will pursue PFTs Tinea pedis of both feet 07/26/2020 Sensorineural hearing loss (SNHL) of both ears 0 10/06/2018 Assessment & Plan (10/06/2018 3:41 PM CDT): Patient did undergo a complete audiogram while in the office today that showed the right ear to have a moderate SNHL rising to slight SNHL sloping back to moderate SNHL; the left ear showed moderate rising to mild SNHL sloping to moderately severe SNHL. Discrimination scores showed 88% to the right and 100% to the left. Tympanogram revealed hypo compliance bilaterally. Reviewed results with the patient. She is not interested in hearing amplification at this time. Recommend patient repeat audiogram in 6 months if she notes any changes to her hearing or change in the nature of tinnitus. Non-seasonal allergic rhinitis 10/06/2018 Resolved Problems Problem Noted Date Diagnosed Date Resolved Date Multiple injuries 09/22/2014 07/26/2020 Surgical History Surgery Date Site/Laterality Comments HYSTERECTOMY with BSO for endometrial polyps TONSILLECTOMY Medical History Medical History Date Comments High cholesterol Osteopenia Family History Medical History Relation Name Comments Coronary artery disease Brother 1 Coronary artery disease Brother 2 Heart attack Father Hypertension Father Arthritis Mother Dementia Mother Uterine cancer Sister 1 Valvular heart disease Sister 1 Breast cancer Sister 2 Coronary artery disease Sister 2 Relation Name Status Comments Brother 1 Brother 2 Father Mother Alive Sister 1 Sister 2 Social History Tobacco Use Types Packs/Day Years Used Date Smoking Tobacco: Never Smokeless Tobacco: Never Alcohol Use Standard Drinks/Week Comments Yes 0 (1 standard drink = 0.6 oz pur e alcohol) AUDIT-C Answer Date Recorded Q1: How often do you have a drink containing alc ohol? Monthly or less 07/26/2020 Q2: How many drinks containi ng alcohol do you have on a typical day when you are drinking? 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 Gender Identity Not on file Sexual Orientation Not on file Obstetrics History Last Filed Vital Signs Vital Sign Reading Time Taken Comments Blood Pressure 132/76 07/26/2020 7:51 AM CDT Pulse 76 07/26/2020 7:51 AM CDT Temperature 36.6 C (97.9 F) 07/26/2020 7:51 AM CDT Respiratory Rate 16 10/01/2018 9:20 AM CDT Oxygen Saturation 96% 07/26/2020 7:51 AM CDT Inhaled Oxygen Concentration - - Weight 68.5 kg (151 lb) 07/26/2020 7:51 AM CDT Height 147.3 cm (4' 10) 07/26/2020 7:51 AM CDT Body Mass Index 31.56 07/26/2020 7:51 AM CDT Plan of Treatment Not on file Insurance MEDICARE [facility] HE[facility] BENEFIT PLAN MEDICARE [facility] BENEFIT PLAN MEDICARE [facility] HEALTH BENEFIT PLAN Care Teams Nursing Consultant Relationship Specialty Start Date End Date Jessy Duron MD [address] [place] [address] PCP - General Internal Medicine 06/19/20
--- OUTSIDE RECORDS SUMMARY | 2024-09-28 09:09 | XMS_ITS | Data Portability ---
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 Name Role Phone ABDIEL COLLINS Primary Care Provider Assessment Encounter Date Assessment Date Assessment LastModified by Organization Details LastModified Time 09/05/2023 09/05/2023 Will obtain blood work obtain her old records she will see me back in 4 to 6 months she can use some Tylenol as needed for her arthritic complaints [email or web address] Not available 09/05/2023 22:25:46 11/20/2023 11/20/2023 overweight healthy lifestyle care instructions discussed dizziness and sinusitis we will CT scan her sinuses I will see her back after she has a scan and she is done with the antibiotic she can use some nasal spray to either Flonase [id number] or saline nasal spray 2 sprays each nostril 4 times a day for the nasal spray 2 sprays each nostril daily for the Flonase [email or web address] Not available 11/30/2023 20:44:54 12/25/2023 12/25/2023 await final ENT opinion start the Lipitor see me in 2 months Not available 12/25/2023 22:06:47 03/04/2024 03/04/2024 CMP lipid healthy lifestyle care instructions continue atorvastatin I have recommended she see ENT again this is a chronic problem with her ears see me back for months Not available 03/07/2024 22:31:04 07/08/2024 07/08/2024 nerve conduction test treatment of osteoporosis discussed she is going to take pause on that right now dyslipidemia again I told him that I would recommend that she take the atorvastatin she will consider follow up with me in 4 months [email or web address] Not available 08/01/2024 22:02:37 Plan of Treatment Reminders Order Date Submit Date Provider Last Modified By Organization Details Last Modified Time Details Appointments ANY 15 2024 02:00P M Abdiel Collins MD Not available Not available Not available Lab lipid panel, serum 2023 024 COLOME Robby, [address], [place], [address], 05/25/2024 07:07:53 CMP, serum or plasma 2023 024 GAILZANA Barcenas, [address], [place], [address], 05/25/2024 07:07:54 lipid panel, serum 2023 024 [facility] [address], [place], [address], 09/24/2023 13:12:28 T3, free, serum or plasma 2023 024 [facility] [address], [place], [address], 09/24/2023 13:12:32 T4, free, serum 2023 024 [facility] [address], [place], [address], 09/24/2023 13:12:33 TSH, serum or plasma 2023 024 [place] [id number] [facility], [address], [place], [address], 01/07/2024 09:43:05 CBC w/ auto diff 2023 024 GAIL [facility], [address], [place], [address], 09/24/2023 13:12:31 CMP, serum or plasma 2023 024 COLOME [facility], [address], [place], [address], 09/24/2023 13:12:29 vitami n B12 + folate , serum or blood 2023 024 COLOME [facility], [address], [place], [address], 09/24/2023 13:12:30 Referral None record ed. Procedures None record ed. Surgeries None record ed. Imaging nerve conduc tion study - NCS b/l legs added to the arms she is schedu led for July. 2024 025 [facility] [address], [place], [address], 07/22/2024 15:22:02 CT, sinuse s, w/o contra st 2023 024 [facility], [address], [place], [address], 11/27/2023 10:43:21 MAMMO, screen ing, digita l, bilate ral 2023 024 [email or web address] [facility], [address], [place], [address], 03/09/2024 15:26:51 bone densit y 2023 024 [facility], [address], [place], [address], 04/02/2024 15:56:52 Medication Orders Lipito r 10 mg tablet 2023 024 sharon [id number], [address] [facility], [place], [address], 05/28/2024 12:46:25 cefuro lilian axetil 500 mg tablet 2023 024 GAIL [id number], [address] [place], [address], 12/25/2023 10:34:37 Flonas e Allerg y Relief 50 mcg/ac tuatio n nasal spray, suspen dayami 2023 024 [email or web address] [id number], [address] [place], [address], 11/20/2023 14:23:48 Patient TargetsNo targets recorded. Patient Instructions Encounter Date Encounter Id Patient Instructions Last Modified By Organization Details Last Modified Time 11/20/2023 [id number] A healthy lifestyle: care instructions [email or web address] Not available 11/20/2023 14:23:48 03/04/2024 [id number] A healthy lifestyle: care instructions [email or web address] Not available 03/04/2024 17:30:37 Reason for Referral None Reported. Results Created Date Observation Date Name Description Value Unit Range Abnormal Flag Note LastModifiedBy Organization Detail LastModifiedTime 09/23/1909/24/2023 LIPID PANEL cholesterol, total 243 mg/dL 100-19 9 above high normal Not Available [facility] ([facility]) [address] [place], [address], 09/24/2023 13:12:28 09/23/1909/24/2023 LIPID PANEL triglyceride s 114 mg/dL 0-149 Not Available [facility] ([facility]) [address] [place], [address], 09/24/2023 13:12:28 09/23/1909/24/2023 LIPID PANEL HDL cholesterol 79 mg/dL >39 Not Available [facility]) [address] [place], [address], 09/24/2023 13:12:28 09/23/19 24 09/24/2023 LIPID PANEL VLDL cholesterol chinedu 20 mg/dL 5-40 Not Available [facility] ([facility]) [address] [facility] [place], [address], 09/24/2023 13:12:28 09/23/19 24 09/24/2023 LIPID PANEL LDL chol calc (rust) 144 mg/dL 0-99 above high normal Not Available [facility] ([facility]) [address] [place], [address], 09/24/2023 13:12:28 09/23/19 24 09/24/2023 COMP. METAB OLIC PANEL (14) glucose 88 mg/dL 70-99 Not Available [facility] ([facility]) [address] [facility] [place], [address], 09/24/2023 13:12:29 09/23/19 24 09/24/2023 COMP. METAB OLIC PANEL (14) BUN 13 mg/dL 8-27 Not Available [facility] ([facility]) [address] [place], [address], 09/24/2023 13:12:29 09/23/19 24 09/24/2023 COMP. METAB OLIC PANEL (14) creatinine 0.57 mg/dL 0.57-1 .00 Not Available [facility] ([facility]) [address] [place], [address], 09/24/2023 13:12:29 09/23/19 24 09/24/2023 COMP. METAB OLIC PANEL (14) eGFR 95 mL/mi n/1.7 3 >59 Not Available [facility] ([facility]) [address] [place], [address], 09/24/2023 13:12:29 09/23/19 24 09/24/2023 COMP. METAB OLIC PANEL (14) BUN/creatini ne ratio 23 12-28 Not Available [facility] ([facility]) [address] [place], [address], 09/24/2023 13:12:29 09/23/19 24 09/24/2023 COMP. METAB OLIC PANEL (14) sodium 139 mmol/ L 134-14 4 Not Available [facility] ([facility]) [address] [facility], [place], [address], 09/24/2023 13:12:29 09/23/19 24 09/24/2023 COMP. METAB OLIC PANEL (14) potassium 4.2 mmol/ L 3.5-5. 2 Not Available [facility] ([facility] [address] [facility] [place], [address], 09/24/2023 13:12:29 09/23/19 24 09/24/2023 COMP. METAB OLIC PANEL (14) chloride 103 mmol/ L 96-106 Not Available [facility] ([facility] [address] [facility] [place], [address], 09/24/2023 13:12:29 09/23/19 24 09/24/2023 COMP. METAB OLIC PANEL (14) carbon dioxide, total 24 mmol/ L - Not Available [facility] ([facility] [address] [facility] [place], [address], 09/24/2023 13:12:29 09/23/19 24 09/24/2023 COMP. METAB OLIC PANEL (14) calcium 9.0 mg/dL 8.7-10 .3 Not Available [facility] ([facility] [address] [facility] [place], [address], 09/24/2023 13:12:29 09/23/19 24 09/24/2023 COMP. METAB OLIC PANEL (14) protein, total 6.3 g/dL 6.0-8. 5 Not Available [facility] ([facility]) [address] [facility], [place], [address], 09/24/2023 13:12:29 09/23/19 24 09/24/2023 COMP. METAB OLIC PANEL (14) albumin 4.3 g/dL 3.8-4. 8 Not Available [facility] ([facility]) [address] [facility], [place], [address], 09/24/2023 13:12:29 09/23/19 24 09/24/2023 COMP. METAB OLIC PANEL (14) globulin, total 2.0 g/dL 1.5-4. 5 Not Available [facility] ([facility]) [address] [facility], [place], [address], 09/24/2023 13:12:29 09/23/19 24 09/24/2023 COMP. METAB OLIC PANEL (14) A/G ratio 2.2 1.2-2. 2 Not Available [facility] ([facility]) [address] [facility], [place], [address], 09/24/2023 13:12:29 09/23/19 24 09/24/2023 COMP. METAB OLIC PANEL (14) bilirubin, total 0.5 mg/dL 0.0-1. 2 Not Available [facility] ([facility]) [address] [facility], [place], [address], 09/24/2023 13:12:29 09/23/19 24 09/24/2023 COMP. METAB OLIC PANEL (14) alkaline phosphatase 69 IU/L 44-121 Not Available [facility] ([facility]) [address] [facility], [place], [address], 09/24/2023 13:12:29 09/23/19 24 09/24/2023 COMP. METAB OLIC PANEL (14) AST (SGOT) 17 IU/L 0-40 Not Available [facility] ([facility]) [address] [facility], [place], [address], 09/24/2023 13:12:29 09/23/19 24 09/24/2023 COMP. METAB OLIC PANEL (14) ALT (SGPT) 9 IU/L 0-32 Not Available [facility] ([facility]) [address] [facility], [place], [address], 09/24/2023 13:12:29 09/23/19 24 09/24/2023 VITAM IN B12 AND FOLAT E vitamin B12 410 pg/mL 232-12 45 Not Available [facility] ([facility]) [address] [facility], [place], [address], 09/24/2023 13:12:30 09/23/19 24 09/24/2023 VITAM IN B12 AND FOLAT E folate (folic acid), serum 17.6 NG/mL >3.0 A serum folat e sara ntrat ion of less than 3.1 ng/mL is consi dered to repre sent clini chinedu defic iency . Not Available [facility] ([facility]) [address] [facility], [place], [address], 09/24/2023 13:12:30 09/23/19 24 09/24/2023 CBC WITH DIFFE RENTI AL/PL ATELE T WBC 4.9 x10e3 /uL 3.4-10 .8 Not Available [facility] ([facility]) [address] [facility], [place], [address], 09/24/2023 13:12:31 09/23/19 24 09/24/2023 CBC WITH DIFFE RENTI AL/PL ATELE T RBC 4.14 x10e6 /uL 3.77-5 .28 Not Available [facility] ([facility]) [address] [facility], [place], [address], 09/24/2023 13:12:31 09/23/19 24 09/24/2023 CBC WITH DIFFE RENTI AL/PL ATELE T hemoglobin 12.5 g/dL 11.1-1 5.9 Not Available [facility] ([facility]) [address] [facility], [place], [address], 09/24/2023 13:12:31 09/23/19 24 09/24/2023 CBC WITH DIFFE RENTI AL/PL ATELE T hematocrit 36.2 % 34.0-4 6.6 Not Available [facility] ([facility]) [address] [facility], [place], [address], 09/24/2023 13:12:31 09/23/19 24 09/24/2023 CBC WITH DIFFE RENTI AL/PL ATELE T MCV 87 fL 79-97 Not Available [facility] ([facility]) [address] [facility], [place], [address], 09/24/2023 13:12:31 09/23/19 24 09/24/2023 CBC WITH DIFFE RENTI AL/PL ATELE T MCH 30.2 pg 26.6-3 3.0 Not Available [facility] ([facility]) [address] [facility], [place], [address], 09/24/2023 13:12:31 09/23/19 24 09/24/2023 CBC WITH DIFFE RENTI AL/PL ATELE T MCHC 34.5 g/dL 31.5-3 5.7 Not Available [facility] ([facility]) [address] [facility], [place], [address], 09/24/2023 13:12:31 09/23/19 24 09/24/2023 CBC WITH DIFFE RENTI AL/PL ATELE T RDW 12.9 % 11.7-1 5.4 Not Available [facility] ([facility]) [address] [place], [address], 09/24/2023 13:12:31 09/23/19 24 09/24/2023 CBC WITH DIFFE RENTI AL/PL ATELE T platelets 247 x10e3 /uL 150-45 0 Not Available [facility] ([facility]) [address] [facility], [place], [address], 09/24/2023 13:12:31 09/23/19 24 09/24/2023 CBC WITH DIFFE RENTI AL/PL ATELE T neutrophils 52 % notest ab. Not Available [facility] ([facility]) [address] [facility], [place], [address], 09/24/2023 13:12:31 09/23/19 24 09/24/2023 CBC WITH DIFFE RENTI AL/PL ATELE T lymphs 37 % notest ab. Not Available [facility] ([facility]) [address] [facility], [place], [address], 09/24/2023 13:12:31 09/23/19 24 09/24/2023 CBC WITH DIFFE RENTI AL/PL ATELE T monocytes 8 % notest ab. Not Available [facility] ([facility]) [address] [facility], [place], [address], 09/24/2023 13:12:31 09/23/19 24 09/24/2023 CBC WITH DIFFE RENTI AL/PL ATELE T eos 2 % notest ab. Not Available [facility] ([facility]) [address] [facility], [place], [address], 09/24/2023 13:12:31 09/23/19 24 09/24/2023 CBC WITH DIFFE RENTI AL/PL ATELE T basos 1 % notest ab. Not Available [facility] ([facility]) [address] [facility], [place], [address], 09/24/2023 13:12:31 09/23/19 24 09/24/2023 CBC WITH DIFFE RENTI AL/PL ATELE T neutrophils (absolute) 2.5 x10e3 /uL 1.4-7. 0 Not Available [facility] ([facility]) [address] [facility], [place], [address], 09/24/2023 13:12:31 09/23/19 24 09/24/2023 CBC WITH DIFFE RENTI AL/PL ATELE T lymphs (absolute) 1.8 x10e3 /uL 0.7-3. 1 Not Available [facility] ([facility]) [address] [facility], [place], [address], 09/24/2023 13:12:31 09/23/19 24 09/24/2023 CBC WITH DIFFE RENTI AL/PL ATELE T monocytes(ab solute) 0.4 x10e3 /uL 0.1-0. 9 Not Available [facility] ([facility]) [address] [facility], [place], [address], 09/24/2023 13:12:31 09/23/19 24 09/24/2023 CBC WITH DIFFE RENTI AL/PL ATELE T eos (absolute) 0.1 x10e3 /uL 0.0-0. 4 Not Available [facility] ([facility]) [address] [facility], [place], [address], 09/24/2023 13:12:31 09/23/19 24 09/24/2023 CBC WITH DIFFE RENTI AL/PL ATELE T baso (absolute) 0.1 x10e3 /uL 0.0-0. 2 Not Available [facility] ([facility]) [address] [facility], [place], [address], 09/24/2023 13:12:31 09/23/19 24 09/24/2023 CBC WITH DIFFE RENTI AL/PL ATELE T immature granulocytes 0 % notest ab. Not Available [facility] ([facility]) [address] [facility], [place], [address], 09/24/2023 13:12:31 09/23/19 24 09/24/2023 CBC WITH DIFFE RENTI AL/PL ATELE T immature grans (abs) 0.0 x10e3 /uL 0.0-0. 1 Not Available [facility] ([facility]) [address] [facility], [place], [address], 09/24/2023 13:12:31 09/23/19 24 09/24/2023 TRIIO DOTHY PRIMO E (T3), FREE triiodothyro nine (T3), free 2.5 pg/mL 2.0-4. 4 Not Available [facility] ([facility]) [address] [place], [address], 09/24/2023 13:12:32 09/23/19 24 09/24/2023 T4,FR EE(DI RECT) T4,free(dire ct) 1.17 NG/dL 0.82-1 .77 Not Available [facility] ([facility]) [address] [place], [address], 09/24/2023 13:12:33 05/24/19 25 05/25/2024 LIPID PANEL cholesterol, total 231 mg/dL 100-19 9 above high normal Not Available [facility] ([facility]) [address] [place], [address], 05/25/2024 07:07:53 05/24/19 25 05/25/2024 LIPID PANEL triglyceride s 96 mg/dL 0-149 Not Available [facility] ([facility]) [address] [place], [address], 05/25/2024 07:07:53 05/24/19 25 05/25/2024 LIPID PANEL HDL cholesterol 83 mg/dL >39 Not Available [facility] ([facility]) [address] [place], [address], 05/25/2024 07:07:53 05/24/19 25 05/25/2024 LIPID PANEL VLDL cholesterol chinedu 17 mg/dL 5-40 Not Available [facility] ([facility]) [address] [place], [address], 05/25/2024 07:07:53 05/24/19 25 05/25/2024 LIPID PANEL LDL chol calc (rust) 131 mg/dL 0-99 above high normal Not Available [facility] ([facility]) [address] [facility] [place], [address], 05/25/2024 07:07:53 05/24/19 25 05/25/2024 COMP. METAB OLIC PANEL (14) glucose 114 mg/dL 70-99 above high normal Not Available [facility] ([facility]) [address] [facility] [place], [address], 05/25/2024 07:07:54 05/24/19 25 05/25/2024 COMP. METAB OLIC PANEL (14) BUN 10 mg/dL 8-27 Not Available [facility] ([facility]) [address] [facility] [place], [address], 05/25/2024 07:07:54 05/24/19 25 05/25/2024 COMP. METAB OLIC PANEL (14) creatinine 0.66 mg/dL 0.57-1 .00 Not Available [facility] ([facility]) [address] [facility] [place], [address], 05/25/2024 07:07:54 05/24/19 25 05/25/2024 COMP. METAB OLIC PANEL (14) eGFR 91 mL/mi n/1.7 3 >59 Not Available [facility] ([facility]) [address] [facility] [place], [address], 05/25/2024 07:07:54 05/24/19 25 05/25/2024 COMP. METAB OLIC PANEL (14) BUN/creatini ne ratio 15 12-28 Not Available [facility] ([facility]) [address] [facility] [place], [address], 05/25/2024 07:07:54 05/24/19 25 05/25/2024 COMP. METAB OLIC PANEL (14) sodium 140 mmol/ L 134-14 4 Not Available [facility] ([facility]) [address] [facility] [place], [address], 05/25/2024 07:07:54 05/24/19 25 05/25/2024 COMP. METAB OLIC PANEL (14) potassium 4.6 mmol/ L 3.5-5. 2 Not Available [facility] ([facility]) [address] [facility], [place], [address], 05/25/2024 07:07:54 05/24/19 25 05/25/2024 COMP. METAB OLIC PANEL (14) chloride 102 mmol/ L 96-106 Not Available [facility] ([facility]) [address] [facility], [place], [address], 05/25/2024 07:07:54 05/24/19 25 05/25/2024 COMP. METAB OLIC PANEL (14) carbon dioxide, total 27 mmol/ L 20-29 Not Available [facility] ([facility]) [address] [facility], [place], [address], 05/25/2024 07:07:54 05/24/19 25 05/25/2024 COMP. METAB OLIC PANEL (14) calcium 9.6 mg/dL 8.7-10 .3 Not Available [facility] ([facility]) [address] [facility] [place], [address], 05/25/2024 07:07:54 05/24/19 25 05/25/2024 COMP. METAB OLIC PANEL (14) protein, total 6.6 g/dL 6.0-8. 5 Not Available [facility] ([facility]) [address] [facility] [place], [address], 05/25/2024 07:07:54 05/24/19 25 05/25/2024 COMP. METAB OLIC PANEL (14) albumin 4.4 g/dL 3.8-4. 8 Not Available [facility] ([facility]) [address] [facility], [place], [address], 05/25/2024 07:07:54 05/24/19 25 05/25/2024 COMP. METAB OLIC PANEL (14) globulin, total 2.2 g/dL 1.5-4. 5 Not Available [facility] ([facility]) [address] [facility], [place], [address], 05/25/2024 07:07:54 05/24/19 25 05/25/2024 COMP. METAB OLIC PANEL (14) bilirubin, total 0.9 mg/dL 0.0-1. 2 Not Available [facility] ([facility]) [address] [facility], [place], [address], 05/25/2024 07:07:54 05/24/19 25 05/25/2024 COMP. METAB OLIC PANEL (14) alkaline phosphatase 72 IU/L 44-121 Not Available [facility] ([facility]) [address] [facility], [place], [address], 05/25/2024 07:07:54 05/24/19 25 05/25/2024 COMP. METAB OLIC PANEL (14) AST (SGOT) 16 IU/L 0-40 Not Available [facility] ([facility]) [address] [facility], [place], [address], 05/25/2024 07:07:54 05/24/19 25 05/25/2024 COMP. METAB OLIC PANEL (14) ALT (SGPT) 11 IU/L 0-32 Not Available [facility] ([facility]) [address] [facility], [place], [address], 05/25/2024 07:07:54 10/03/19 24 10/03/2023 XR, knee No observ ation record ed. [email or web address] [facility] [address] [facility] , [place], [address], 10/15/2023 08:09:53 11/27/19 24 11/26/2023 CT, sinus es, w/o contr ast No observ ation record ed. [facility] [address], [place], [address], 12/09/2023 17:00:27 12/23/19 24 12/23/2023 MRI, brain + inter nal audit ory canal , w/wo contr ast No observ ation record ed. [facility] [address] [facility] [address], [place], [address], 12/29/2023 17:09:20 02/26/20 24 02/26/2024 MAMMO , scree calixto, digit al, bilat eral No observ ation record ed. [facility] [address], [place], [address], 03/12/2024 14:57:54 04/02/20 24 04/01/2024 bone densi ty No observ ation record ed. [facility] [address] [place], [address], 04/15/2024 11:25:25 07/15/19 25 07/13/2024 nerve condu ction study No observ ation record ed. [facility] [address] [facility] [address], [place], [address], 07/22/2024 15:22:02 Result Notes None recorded. Problems Name Problem SNOMED Code Status Onset Date Resolution Date Notes Provider Name and Address Organization Details Recorded Time Hyperlipidemia 66806624 Active 2023 Abdiel Collins MD Attn: Nitin chichi,[address] [facility], [place], [address] [place] [address] - [facility] 22:07:04 Problem Notes None recorded. Procedures Surgical History Date Name Laterality Status Provider Name and Address Organization Details Recorded Time Tonsillectomy completed Vicente Jamison MA [place] - [facility] 09/05/2023 11:54:46 Total hysterectomy completed Fercho Jamison MA [place] - [facility] 09/05/2023 11:54:56 Imaging Results Imaging Date Name Status LastModified by [facility] Details LastModified Time 10/03/2023 XR, knee completed [facility] [address] [facility] , [place], [address], 10/15/2023 08:09:53 11/26/2023 CT, sinuses, w/o contrast completed [facility] [address], [place], [address], 12/09/2023 17:00:27 12/23/2023 MRI, brain + internal auditory canal, w/wo contrast completed [facility] [address] [facility] [address], [place], [address], 12/29/2023 17:09:20 02/26/2024 MAMMO, screening, digital, bilateral completed [facility] [address], [place], [address], 03/12/2024 14:57:54 04/01/2024 bone density completed [facility] [address] [facility], [place], [address], 04/15/2024 11:25:25 07/13/2024 nerve conduction study completed [facility] [address] [facility] [address], [place], [address], 07/22/2024 15:22:02 Procedure Notes None recorded. Medical Equipment None Reported. Allergies Allergen ID Allergen Name Allergen Category Reaction Reaction Severity Criticality Documentation Date Start Date Code Code System Note Provider Name and Address Organization Details Recorded Time 258104 codeine medicatio n nausea Not available low 09/05/20232017 2670 [facility] TELMA [place], [place] - [facility] 14:04:27 Medications Name Sig Start Date Stop Date Status Note LastModified by Organization Details LastModified Time prednison e 10 mg tablet TAKE 6 TABS BY MOUTH DAILY FOR 4 DAYS, THEN 4 DAILY FOR 4 DAYS, THEN DECREASE BY 1 TAB EVERY 4 DAYS 12/24 completed Not Available Not Available Not Available atorvasta tin 20 mg tablet TAKE 1 TABLET BY MOUTH EVERY DAY active Not Available Not Available No t Available atorvasta tin 10 mg tablet TAKE 1 TABLET BY MOUTH EVERY DAY 05/[address] Collins increase d dose to 20mg Not Available Not Available Not Available prednison e 20 mg tablet PLEASE SEE ATTACHED FOR DETAILED DIRECTIO NS 12/24 completed Not Available Not Available Not Available prednison e 5 mg tablet TAKE 1-3 TABLETS BY ORAL ROUTE ONCE DAILY 09/04 completed Not Available Not Available Not Available sulfasala zine 500 mg tablet,de layed release TAKE 3 TABLETS BY ORAL ROUTE 2 TIMES A DAY FOR 90 DAYS 09/04 completed Not Available Not Available Not Available Flonase 50 mcg/actua tion nasal spray,[employer] SPRAY 1 SPRAY BY INTRANAS AL ROUTE EVERY DAY active Not Available Not Available No t Available omeprazol e 40 mg capsule,d elayed release TAKE 1 CAPSULE BY MOUTH EVERY DAY 09/04 completed Not Available Not Available Not Available prednisol one acetate 1 % eye drops,[employer] INSTILL 1 DROP, INTO BOTH EYES 4 TIMES A DAY FOR 1 WEEK 12/24 completed Not Available Not Available Not Available polymyxin B sulfate 10,000 unit-trim ethoprim 1 mg/mL eye drops INSTILL 1 DROP INTO AFFECTED EYE(S) EVERY 6 HOURS FOR 7 DAYS 12/24 completed Not Available Not Available Not Available diclofena c sodium 75 mg tablet,de layed release TAKE 1 TABLET BY MOUTH TWICE A DAY 09/04 completed Not Available Not Available Not Available cefuroxim e axetil 500 mg tablet TAKE 1 TABLET BY MOUTH TWICE A DAY FOR 21 DAYS 12/24 completed Not Available Not Available Not Available amoxicill in 875 mg-potass ium clavulana te 125 mg tablet TAKE 1 TABLET BY MOUTH TWICE A DAY WITH MORNING AND EVENING MEAL 12/24 completed Not Available Not Available Not Available Vitals Date Recorded Body height Body mass index (BMI) Body weight Oxygen saturation Oxygen saturation in Arterial blood by Pulse oximetry Heart rate Systolic blood pressure Diastolic blood pressure Provider Name and Address Organization Details Last Updated DateTime 149.86 cm 27.7 kg/m2 49777.1 5 g 97 % 97 % 67 /min 118 mm[Hg] 82 mm[Hg] Vicente Jamison MA [facility] 4 11:58:50 Date Recorded Body height Body mass index (BMI) Body weight Heart rate Oxygen saturation Oxygen saturation in Arterial blood by Pulse oximetry Systolic blood pressure Diastolic blood pressure Provider Name and Address Organization Details Last Updated DateTime 4 149.86 cm 27.3 kg/m2 42103.9 7 g 64 /min 96 % 96 % 100 mm[Hg] 60 mm[Hg] Kadi Llanes MA [facility] 4 11:58:23 Date Recorded Body height Body mass index (BMI) Body weight Heart rate Oxygen saturation Oxygen saturation in Arterial blood by Pulse oximetry Systolic blood pressure Diastolic blood pressure Provider Name and Address Organization Details Last Updated DateTime 4 149.86 cm 27.7 kg/m2 33834.1 5 g 67 /min 97 % 97 % 118 mm[Hg] 66 mm[Hg] Marisela Call MA [facility] 4 09:55:35 Date Recorded Body height Body mass index (BMI) Body weight Heart rate Oxygen saturation Oxygen saturation in Arterial blood by Pulse oximetry Systolic blood pressure Diastolic blood pressure Provider Name and Address Organization Details Last Updated DateTime 4 146.69 cm 29.2 kg/m2 49125.1 8 g 68 /min 92 % 92 % 126 mm[Hg] 64 mm[Hg] Marisela Call MA [facility] 4 14:46:57 Date Recorded Body height Body mass index (BMI) Body weight Oxygen saturation Oxygen saturation in Arterial blood by Pulse oximetry Heart rate Systolic blood pressure Diastolic blood pressure Provider Name and Address Organization Details Last Updated DateTime 5 146.69 cm 31.3 kg/m2 23966.4 7 g 94 % 94 % 84 /min 116 mm[Hg] 70 mm[Hg] Shade Khalil MA [facility] 5 14:28:41 Social History Question Answer Notes LastModified by Organizat ion Details LastModified Time Tobacco Smoking Status Never Smoker Vicente Jamison MA null, [facility] 09/05/2023 11:53:46 Do You Have An Advance Directive? Yes Information n ot available 09/05/2023 Are You Blind Or Do You Have Difficulty Seeing? No Information n ot available 09/05/2023 What Is Your Level Of Caffeine Consumption? Occasional Information not available 09/05/2023 In The 14 Days Before Symptom Onset, Have You Had Close Contact With A Laboratory-confirm ed COVID-19 While That Case Was Ill? No Information n ot available 11/20/2023 In The 14 Days Before Symptom Onset, Have You Had Close Contact With A Person Who Is Under Investigation For COVID-19 While That Person Was Ill? No Information not available 11/20/2023 Have You Been To An Area Known To Be High Risk For COVID-19? No Information not available 11/20/2023 Are You Deaf Or Do You Have Serious Difficulty Hearing? No Information not available 09/05/2023 What Type Of Diet Are You Following? REGULAR Information n ot available 09/05/2023 Are There Any Guns Present In Your Home? No Information not available 09/05/2023 What Was The Date Of Your Most Recent Tobacco Screening? 07/08/2024 [email or web address] Information not available 07/08/2024 What Is Your Relationship Status? Information not available 09/05/2023 Do You Use Your Seat Belt Or Car Seat Routinely? Yes Information not available 09/05/2023 Do You Have Smoke And Carbon Monoxide Detectors In Your Home? Yes Information not available 09/05/2023 Do You Use Sunscreen Routinely? Yes Information not available 09/05/2023 Has Tobacco Cessation Counseling Been Provided? No Information not available 09/05/2023 Sex: Female Functional Status Question Answer Note LastModified by Organizat ion Details LastModified Time Do you use any illicit or recreational drugs? No Information not available 09/05/2023 Do you or have you ever used any other forms of tobacco or nicotine? No Information not available 09/05/2023 What is your level of alcohol consumption? Occasional Information not available 09/05/2023 Are you currently employed? No Information not available 09/05/2023 Are you able to care for yourself? Yes Information n ot available 09/05/2023 What is your exercise level? Heavy Information not available 09/05/2023 Mental Status Question Answer Note LastModified by Organization D etails LastModified Time Do you feel stressed (tense, restless, nervous, or anxious, or unable to sleep at night)? [id number] Information not available 09/05/2023 Family History Relationship Description Onset Age of this Age Resolved Age Notes LastModified by Organization Details LastModified Time Sister Malignant tumor of breast [email or web address] Not available 08/11 11:51:51 Sister Heart disease bandersonma Not available 08/11 11:52:35 Sister Hypercholest erolemia bandersonma Not available 08/11 11:52:46 Sister Hypertensive disorder bandersonma Not available 08/11 11:52:59 Sister Osteoporosis bandersonma Not av ailable 09/05/2023 11:53:18 Mother Depressive disorder bandersonma Not available 08/11 11:52:07 Mother Osteoporosis bandersonma Not av ailable 09/05/2023 11:53:18 Father Diabetes mellitus bandersonma Not available 08/11 11:52:18 Father Heart disease bandersonma Not available 08/11 11:52:34 Father Hypercholest erolemia bandersonma Not available 08/11 11:52:46 Father Hypertensive disorder bandersonma Not available 08/11 11:52:59 Brother Diabetes mellitus bandersonma Not available 08/11 11:52:18 Brother Heart disease bandersonma Not available 08/11 11:52:35 Brother Hypercholest erolemia bandersonma Not available 08/11 11:52:46 Brother Hypertensive disorder bandersonma Not available 08/11 11:52:59 Brother Osteoporosis bandersonma Not a vailable 09/05/2023 11:53:18 Medical History Condition Response Coronary Artery Disease N Other N Atrial Fibrillation N High Blood Pressure N Kidney or Bladder Problems N Thyroid Problems N GI Problems N Depression N COPD N Blood Clots N Skin Problems N Anemia N Heart Attack ([place]) N Anxiety Disorder N Diabetes N Muscle, Joint, or Bone Problems Y Seizures/Epilepsy N Acid Reflux (GERD) N Cancer N Stroke N Asthma N Allergies N High Cholesterol N Hepatitis N Liver Disease N Headaches N Heart Failure N Osteoporosis Y Gynecological History Statement/Question Response If Post Menopausal, Age at Menopause 48 Current Control Method Hysterectom y Date of LMP Obstetrics History GPAL:G 4 P 4 0 0 4 Type Value Full Term 4 Living 4 Total 4 Immunizations Vaccine Type Date Status Note Provider Nam e and Address Organization Details Recorded Time Influenza, high-dose, quadrivalent, PF 2 completed TELMA [place], [place] - [facility] 11/19/2023 17:07:53 COVID-19, mRNA, LNP-S, PF, 30 mcg/0.3 mL dose 1 completed TEL[place] [facility] 11/19/2023 17:07:53 COVID-19, mRNA, LNP-S, PF, 30 mcg/0.3 mL dose 1 completed T[place] [facility] 11/19/2023 17:07:53 pneumococcal polysaccharide PPV23 2 completed TELMA [place], [place] [facility] 11/19/2023 17:07:53 Past Encounters Encounter ID Performer Location Encounter Start Date Encounter Closed Date Diagnosis/Indication Diagnosis SNOMED-CT Code Diagnosis ICD10 Code Diagnosis Note [id number] Abdiel Collins MD [facility] (Adult Med) [address] [place] [id number] 09/05/2023 11:06:18 09/05/2023 12:23:02 Fatigue 53195868 R53.83 Screening for cardiovascular system disease 447069098 Z13.6 Screening mammography 24 045993 Z12.31 Postmenopausal state 764 79886 Z78.0 [id number] Abdiel Collins MD [facility] [address] [place] [address] 11/20/2023 11:44:08 11/20/2023 12:59:05 Overweight 839097738 E66.3 Dizziness 128735715 R42 Sinusitis 38678478 J32.9 [id number] Abdiel Collins MD [facility] [address] [place] [address] 12/25/2023 09:45:36 12/25/2023 10:47:12 Hyperlipidemia 73352687 E78.5 [id number] Abdiel Collins MD [facility] [address] [place], [place] [id number] 03/04/2024 14:26:00 03/04/2024 15:44:26 Overweight 178400707 E66.3 Hyperlipidemia 19744811 E78.5 [id number] Abdiel Collins MD [facility] [address] [place], [place] [address] 07/08/2024 14:14:28 07/08/2024 15:15:31 Hyperlipidemia 67271735 E78.5 Paresthesi a of lower extremity 783167218 R20.2 Health Concerns Section Related Observation LastModified by Organization Detai ls LastModified Time None Recorded Concern Status LastModified by Organization Details LastModified Time None Recorded Advance Directives Directive Y: Payers Encounter Date Sequence Insurance Name Policy Number Policy Neri Covered Member ID Neri Member ID Guarantor Name 09/05/2023 1 [place] Heather Toñito [id number] 3 Heather Toñito 09/05/[address] [facility] BENEFITS PLAN - OPEN ACCESS PLUS 77 Heather Toñito [id number] Heather Warba 11/20/2023 1 [place] Heather Toñito [id number] Heather Toñito 11/20/[address] [facility] BENEFITS PLAN - OPEN ACCESS PLUS 77 Heather Warba [id number] Heather Toñito 12/25/2023 1 [place] Heather Warba [id number] Heather Toñito 12/25/2023 2 [facility] BENEFITS PLAN - OPEN ACCESS PLUS 77 Heather Warba [id number] Heather Warba 03/04/2024 1 [place] Heather Warba [id number] Heather Warba 03/04/2024 2 [facility] BENEFITS [facility] - OPEN ACCESS PLUS 77 Heather Sibley [id number] Heather Sibley 07/08/2024 1 [place] Heather Sibley [id number] Heather Sibley 07/08/[address] [facility] BENEFITS [facility] - OPEN ACCESS PLUS 77 Heather Sibley [id number] Heather Sibley Notes Date Note Type Note Provider Name and Address Organization Details Recorded Time 09/05/2023 text/html 72-year-old who comes in no medications have some osteoarthritis history of osteoporosis but does not remember when her last bone density was had a mammogram about a year ago Cologuard negative a couple years ago saw a diver helper for her arthritis. Surgeries as listed tonsillectomy and hysterectomy family history is reviewed diabetes depression osteoporosis hypertension heart disease and breast cancer. not smoke does not drink stays active playing golf. She said a little bit of fatigue Abdiel Collins MD Attn: Accounting, [address] [place], [address], [place] [facility] 09/05/2023 22:26:03 11/20/2023 text/html She feels like i n a tunnel when she speaks. She does see the diver helper for some arthritis osteoarthritis this feels like her sinuses are plugged up at times no ringing in her ears Abdiel Collins MD Attn: Accounting, [address] [facility], [place], [address], [place] [facility] 11/30/2023 20:45:14 12/25/2023 text/html she did see ENT MRI was unremarkable she has to call them for follow up and she has the same symptoms dyslipidemia she has not started the Lipitor yet Abdiel Collins MD Attn: Accounting, [address] [place], [address], [place] [facility] 12/25/2023 22:07:28 03/04/2024 text/html hyperlipidemia n eeds labs trying to follow a low-fat diet she still needs to see ENT for her dizziness Abdiel Collins MD Attn: Accounting, [address] [place], [address], [facility] 03/07/2024 22:31:27 07/08/2024 text/html dyslipidemia too k herself off the atorvastatin does not like taking medications osteoporosis no bone pain numbness hands her dizziness improving slowly Abdiel Collins MD Attn: Accounting[address] [facility], [place], [address], [facility] 08/01/2024 22:02:57 OBGyn Episode No OBEpisode recorded.
--- OUTSIDE RECORDS SUMMARY | 2024-09-28 09:09 | XMS_ITS | Data Portability ---
Author Organization [place] - [facility] [employer], Main Office Address [address] [place] [address] Care Team Providers Care Production Operator Name Role Phone RAISA CONDE Primary Care Provider RAISA CONDE Referring Provider Assessment Encounter Date Assessment Date Assessment LastModified by Organization Details LastModified Time 10/09/2022 10/09/2022 Assessment: Cough Dyspnea ILD Plan: The following were reviewed and explained to the patient: primary care/referral note Chest CT 09/06/22 FESTUS>RUL subpleural reticulation, ?early ILD Cough/Dyspnea workup will be done as follows: Respiratory allergen panel for [facility] Serum IgE Serum total IgG, IgG1, IgG2, IgG3, IgG4 Hkeoa-3-iyulwxbnhr n phenotype and level TB stimulated gamma interferon B-type natriuretic peptide (BNP) Eosinophil count Hypersensitivity pneumonitis profile ANCA CHRISTINA KARIN levels RF CCP SSA SSB Scl 70 Centromere B Connie-1 Myositis panel Complete pulmonary function testing (PFT) Advised to continue not to smoke. Adherence to therapy is advocated. Nonadherence may lead to treatment failure, further progression of the condition, and other complications. Hospitals admissions are often the result of individuals not taking prescription medications accurately. Alternatively, greater adherence to medication regimens have shown to lower rates of hospitalization and decrease total medical costs in patients with chronic medical conditions. Advocated influenza vaccination annually and pneumonia vaccination GURPREET. Advocated weight loss through diet and exercise. Patient's ideal body weight according to height and gender is up to 100 lbs. Encouraged patient to adjust caloric intake to maintain/achieve ideal body weight, emphasizing on fruits, vegetables, whole grains, and fat-free or low-fat products. These include lean meats, poultry, fish, beans, eggs, and nuts and foods that are low in saturated fats, trans-fats, cholesterol, salt (sodium), and glycemic index. Stressed the importance of regular exercise up to the patient's capacity limits. In this case, we recommend 20 min daily walking, 2 days a week of resistance training. Patient to monitor BP daily and bring records to PCP for further management. 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 Vaughn Murphy for (+) homogeneous CHRISTINA 1:640. She was on sulfasalazine for unspecified arthritis. Cough/Dyspnea workup will be done as follows: Methacholine challenge testing High resolution chest CT Advised to continue not to smoke. Adherence to therapy is advocated. Nonadherence may lead to treatment failure, further progression of the condition, and other complications. Hospitals admissions are often the result of individuals not taking prescription medications accurately. Alternatively, greater adherence to medication regimens have shown to lower rates of hospitalization and decrease total medical costs in patients with chronic medical conditions. Advocated influenza vaccination annually and pneumonia vaccination GURPREET. Advocated weight loss through diet and exercise. Patient's ideal body weight according to height and gender is up to 100 lbs. Encouraged patient to adjust caloric intake to maintain/achieve ideal body weight, emphasizing on fruits, vegetables, whole grains, and fat-free or low-fat products. These include lean meats, poultry, fish, beans, eggs, and nuts and foods that are low in saturated fats, trans-fats, cholesterol, salt (sodium), and glycemic index. Stressed the importance of regular exercise up to the patient's capacity limits. In this case, we recommend 20 min daily walking, 2 days a week of resistance training. Patient to monitor BP daily and bring records to PCP for further management. Follow-up: 1 week after methacholine challenge testing and high resolution chest CT Not available 01/24/2023 10:48:26 Plan of Treatment Reminders Order Date Submit Date Provider Last Modified By Organization Details Last Modified Time Details Appointments None recorded. Lab alpha-1-ant itrypsin (aat) phenotype, serum [address] (Lab), [address] [place], [address], 3 12:37:25 BNP (B-type natriuretic peptide), serum or plasma 2022 023 [facility] (Lab), [address] [place], [address], 15:38:22 ige, total, serum [address] (Lab), [address] [place], [address], 3 12:37:25 tb (M tuberculosi s), ifn-gamma francisco javier, blood [address] (Lab), [address] [place], [address], 3 12:37:25 eosinophil count, manual, blood (OBS) [address] (Lab), [address] [place], [address], 3 12:37:25 igg subclasses 1+2+3+4, serum [address] (Lab), [address] [place], [address], 3 12:37:25 respiratory allergen panel - [facility] a [address] (Lab), [address] [place], [address], 12:37:26 respiratory allergen panel - [facility] b [address] (Lab), [address] [place], [address], 12:37:26 hypersensit ivity pneumonitis profile, serum [address] (Lab), [address] [place], [address], 3 12:37:26 anca panel, serum [address] (Lab), [address] [place], [address], 12:37:26 CHRISTINA (antinuclea r antibodies) screen, serum [address] (Lab), [address] [place], [address], 12:37:26 KARIN (angiotensi n-convertin g enzyme), serum [address] (Lab), [address] [place], [address], 3 12:37:26 rf (rheumatoid factor), serum [address] (Lab), [address] [place], [address], 3 12:37:27 ccp (cyclic citrullinat ed peptide) iga+igg, serum [address] (Lab), [address] [place], [address], 12:37:27 ssa Ab, serum [address] (Lab), [address] [place], [address], 12:37:27 ssa Ab, serum [address] (Lab), [address] [place], [address], 12:37:27 connie-1 Ab, serum [address] (Lab), [address] [place], [address], 12:37:27 centromere B Ab, serum [address] (Lab), [address] [place], [address], 12:37:28 scleroderma (SCL-70) autoantibod ies, serum [address] (Lab), [address] [place], [address], 12:37:28 myositis autoantibod y panel, serum or plasma [address] (Lab), [address] [place], [address], 12:37:28 histoplasma Ab, serum [address] (Lab), [address] [place], [address], 12:37:28 Blastomyces dermatitidi s Ab, qual ID, serum 2022 023 [email or web address] [facility] (Lab), [address] [place], [address], 12:37:28 coccidioide s Ab, serum 2022 023 [facility] (Lab), [address] [place], [address], 22:24:38 lipid panel, serum 2022 023 [email or web address] [facility] (Lab), [address] [place], [address], 10:25:28 Referral None recorded. Procedures None recorded. Surgeries None recorded. Imaging CT, chest, w/o contrast - High resolution chest CT no auth required 2022 023 [facility] ([facility] Sched[facility]), [address] [place], [address], 17:36:38 electromyog jacques + nerve conduction study - bilateral upper extremities 2022 023 [facility], [address] [place] [address], [address], [address], 10:17:03 Medication Orders None recorded. Patient TargetsNo targets recorded. Patient Instructions Encounter Date Encounter Id Patient Instructions Last Modified By Organization Details Last Modified Time 10/09/2022 [id number] complete PFT w/ post bronchodilator spirometry* GAIL Not available 01/27/2023 10:03:09 01/24/2023 [id number] methacholine challenge* [email or web address] Not available 04/16/2023 14:50:08 Reason for Referral None Reported. Results Created Date Observation Date Name Description Value Unit Range Abnormal Flag Note LastModifiedBy Organization Detail LastModifiedTime 08/20/19 23 08/19/2022 CBC/C OMPLE TE BLD COUNT W/DIF F white blood cells 6.3 x10'3 /uL 4.2-10 .8 Not Available [facility] (Lab) [address] [place], [address], 08/19/2022 19:57:05 08/20/19 23 08/19/2022 CBC/C OMPLE TE BLD COUNT W/DIF F red blood cells 4.33 x10'6 /uL 3.80-5 .20 Not Available [facility] (Lab) [address] [place], [address], 08/19/2022 19:57:05 08/20/19 23 08/19/2022 CBC/C OMPLE TE BLD COUNT W/DIF F hemoglobin 12.7 g/dL 12.0-1 5.6 Not Available [facility] (Lab) [address] [place], [address], 08/19/2022 19:57:05 08/20/19 23 08/19/2022 CBC/C OMPLE TE BLD COUNT W/DIF F hematocrit 38.7 % 35.7-4 5.7 Not Available [facility] (Lab) [address] [place], [address], 08/19/2022 19:57:05 08/20/19 23 08/19/2022 CBC/C OMPLE TE BLD COUNT W/DIF F mean red cell volume 89.4 fL 82.0-9 9.0 Not Available [facility] (Lab) [address] [place], [address], 08/19/2022 19:57:05 08/20/19 23 08/19/2022 CBC/C OMPLE TE BLD COUNT W/DIF F mean red cell hemoglobin 29.3 pg 27.0-3 3.0 Not Available [facility] (Lab) [address] [place], [address], 08/19/2022 19:57:05 08/20/19 23 08/19/2022 CBC/C OMPLE TE BLD COUNT W/DIF F mean RBC HGB concentratio n 32.8 g/dL 31.0-3 6.0 Not Available [facility] (Lab) [address] [place], [address], 08/19/2022 19:57:05 08/20/19 23 08/19/2022 CBC/C OMPLE TE BLD COUNT W/DIF F red cell distribution width 13.4 % 11.8-1 5.5 Not Available [facility] (Lab) [address] [place], [address], 08/19/2022 19:57:05 08/20/1908/19/2022 CBC/C OMPLE TE BLD COUNT W/DIF F platelets 365 x10'3 /uL 150-40 0 Not Available [facility] (Lab) [address] [place], [address], 08/19/2022 19:57:05 08/20/1908/19/2022 CBC/C OMPLE TE BLD COUNT W/DIF F mean platelet volume 10.0 fL 9.0-12 .4 Not Available [facility] (Lab) [address] [place], [address], 08/19/2022 19:57:05 08/20/19 23 08/19/2022 CBC/C OMPLE TE BLD COUNT W/DIF F neutrophils 65.8 % 39.0-7 2.0 Not Available [facility] (Lab) [address] [place], [address], 08/19/2022 19:57:05 08/20/1908/19/2022 CBC/C OMPLE TE BLD COUNT W/DIF F lymphocytes 25.2 % 16.0-4 7.0 Not Available [facility] (Lab) [address] [place], [address], 08/19/2022 19:57:05 08/20/19 23 08/19/2022 CBC/C OMPLE TE BLD COUNT W/DIF F monocytes 7.4 % 5.0-12 .0 Not Available [facility] (Lab) [address] [place], [address], 08/19/2022 19:57:05 08/20/19 23 08/19/2022 CBC/C OMPLE TE BLD COUNT W/DIF F eosinophils 0.3 % 1.0-7. 0 low Not Available [facility] (Lab) [address] [place], [address], 08/19/2022 19:57:05 08/20/1908/19/2022 CBC/C OMPLE TE BLD COUNT W/DIF F basophils 1.1 % 0.0-2. 0 Not Available [facility] (Lab) [address] [place], [address], 08/19/2022 19:57:05 08/20/1908/19/2022 CBC/C OMPLE TE BLD COUNT W/DIF F immature granulocytes 0.2 % 0.00-0 .50 Not Available [facility] (Lab) [address] [place], [address], 08/19/2022 19:57:05 08/20/19 23 08/19/2022 CBC/C OMPLE TE BLD COUNT W/DIF F neutrophils, absolute count 4.15 x10'3 /uL 1.5-8. 0 Not Available [facility] (Lab) [address] [place], [address], 08/19/2022 19:57:05 08/20/1908/19/2022 CBC/C OMPLE TE BLD COUNT W/DIF F lymphocytes, absolute count 1.59 x10'3 /uL 1.07-3 .43 Not Available [facility] (Lab) [address] [place], [address], 08/19/2022 19:57:05 08/20/19 23 08/19/2022 CBC/C OMPLE TE BLD COUNT W/DIF F monocytes, absolute count 0.47 x10'3 /uL 0.29-0 .99 Not Available [facility] (Lab) [address] [place], [address], 08/19/2022 19:57:05 08/20/19 23 08/19/2022 CBC/C OMPLE TE BLD COUNT W/DIF F eosinophils, absolute count 0.02 x10'3 /uL 0.02-0 .53 Not Available [facility] (Lab) [address] [place], [address], 08/19/2022 19:57:05 08/20/19 23 08/19/2022 CBC/C OMPLE TE BLD COUNT W/DIF F basophils, absolute count 0.07 x10'3 /uL 0.01-0 .08 Not Available [facility] (Lab) [address] [place], [address], 08/19/2022 19:57:05 08/20/19 23 08/19/2022 CBC/C OMPLE TE BLD COUNT W/DIF F immature granulocytes ,absolute 0.01 x10'3 /uL 0.00-0 .05 Not Available [facility] (Lab) [address] [place], [address], 08/19/2022 19:57:05 08/20/19 23 08/19/2022 CBC/C OMPLE TE BLD COUNT W/DIF F nucleated red blood cells 0.0 % -0 Not Available [facility] (Lab) [address] [place], [address], 08/19/2022 19:57:05 08/20/19 23 08/19/2022 CBC/C OMPLE TE BLD COUNT W/DIF F NRBC# 0.00 x10'3 /uL Not Available [facility] (Lab) [address] [place], [address], 08/19/2022 19:57:05 08/20/19 23 08/19/2022 LIPID PANEL cholesterol 304 mg/dL 140-19 9 high NIH KRUPA NSUS RECOM MENDA TION FOR JEANETH STERO L: ADULT CHILD LOW RISK: <200 <170 BORDE RLINE : <200- 239 ----- HIGH RISK: >240 >200 Not Available [facility] (Lab) [address] [place], [address], 08/19/2022 20:13:24 08/20/19 23 08/19/2022 LIPID PANEL triglyceride s 83 mg/dL 0-150 NIH KRUPA NSUS REPOR T RECOM MENDA TION FOR TRIGL YCERI MACHO: ADULT CHILD LOW RISK: <150 ----- BODER LINE: 150-1 99 ----- HIGH RISK: >200 ----- Not Available [facility] (Lab) [address] [place], [address], 08/19/2022 20:13:24 08/20/19 23 08/19/2022 LIPID PANEL HDL cholesterol 78 mg/dL 40- Not Available [facility] (Lab) [address] [place], [address], 08/19/2022 20:13:24 08/20/19 23 08/19/2022 LIPID PANEL LDL cholesterol, calculated 209 mg/dL 0-130 high NIH KRUPA NSUS REPOR T RECOM MENDA TIONS FOR LDL: ADULT CHILD LOW RISK <130 <110 (OPTI MAL LDL) <100 ----- BORDE RLINE : 130-1 59 ----- HIGH RISK: >160 >130 A TRIGL YCERI DE RESUL T >400 INVAL IDATE S THE CALCU LATIO N FOR LDL FRACT IONAT ION - THE LDL RESUL T WILL NOT BE REPOR COCO. Not Available [facility] (Lab) [address] [place], [address], 08/19/2022 20:13:24 08/20/19 23 08/19/2022 VITAM IN D 25-HY DROXY [id number] 32.2 NG/mL 30-100 Vitam in D Statu s: Defic ient: <20 ng/mL Insuf ficie nt: 20-29 ng/mL Suffi cient : 30-10 0 ng/mL Not Available [facility] (Lab) [address] [place], [address], 08/19/2022 20:21:05 08/20/19 23 08/19/2022 TSH thyroid-stim ulating hormone 0.965 uIU/m L 0.465- 4.680 Not Available [facility] (Lab) [address] [place], [address], 08/19/2022 20:54:15 08/20/19 23 08/19/2022 HEPAT IC/LI RENETTA PANEL alkaline phosphatase 67 U/L 38-126 Not Available [facility] (Lab) [address] [place], [address], 08/19/2022 22:00:41 08/20/19 23 08/19/2022 HEPAT IC/LI RENETTA PANEL alanine aminotransfe rase 34 U/L 0-35 Not Available [facility] (Lab) [address] [place], [address], 08/19/2022 22:00:41 08/20/19 23 08/19/2022 HEPAT IC/LI RENETTA PANEL aspartate aminotransfe rase 30 U/L 15-37 Not Available [facility] (Lab) [address] [place], [address], 08/19/2022 22:00:41 08/20/19 23 08/19/2022 HEPAT IC/LI RENETTA PANEL bilirubin, total 0.60 mg/dL 0.20-1 .30 Not Available [facility] (Lab) [address] [place], [address], 08/19/2022 22:00:41 08/20/19 23 08/19/2022 HEPAT IC/LI RENETTA PANEL bilirubin, conjugated (direct) 0.00 mg/dL 0.00-0 .30 Not Available [facility] (Lab) [address] [place], [address], 08/19/2022 22:00:41 08/20/19 23 08/19/2022 HEPAT IC/LI RENETTA PANEL biliurubin,u ncong. (indirect) 0.00 mg/dL 0.00-1 .1 Not Available [facility] (Lab) [address] [place], [address], 08/19/2022 22:00:41 08/20/19 23 08/19/2022 HEPAT IC/LI RENETTA PANEL total protein 7.7 g/dL 6.3-8. 2 Not Available [facility] (Lab) [address] [place], [address], 08/19/2022 22:00:41 08/20/19 23 08/19/2022 HEPAT IC/LI RENETTA PANEL albumin 4.9 g/dL 3.0-4. 4 high Not Available [facility] (Lab) [address] [place], [address], 08/19/2022 22:00:41 08/20/19 23 08/19/2022 HEPAT IC/LI RENETTA PANEL globulin 2.8 g/dL 2.6-4. 2 Not Available [facility] (Lab) [address] [place], [address], 08/19/2022 22:00:41 08/20/19 23 08/19/2022 HEPAT IC/LI RENETTA PANEL A/G ratio 1.8 ratio 1.0-2. 0 Not Available [facility] (Lab) [address] [place], [address], 08/19/2022 22:00:41 08/20/19 23 08/19/2022 BASIC METAB OLIC PANEL sodium 136 mmol/ L 137-14 5 low Not Available [facility] (Lab) [address] [place], [address], 08/19/2022 21:22:33 08/20/19 23 08/19/2022 BASIC METAB OLIC PANEL potassium 4.4 mmol/ L 3.5-5. 1 Not Available [facility] (Lab) [address] [place], [address], 08/19/2022 21:22:33 08/20/19 23 08/19/2022 BASIC METAB OLIC PANEL chloride 102 mmol/ L 98-107 Not Available [facility] (Lab) [address] [place], [address], 08/19/2022 21:22:33 08/20/19 23 08/19/2022 BASIC METAB OLIC PANEL carbon dioxide 22 mmol/ L 22-30 Not Available [facility] (Lab) [address] [place], [address], 08/19/2022 21:22:33 08/20/19 23 08/19/2022 BASIC METAB OLIC PANEL anion gap 16.4 mmol/ L 14-22 Not Available [facility] (Lab) [address] [place], [address], 08/19/2022 21:22:33 08/20/19 23 08/19/2022 BASIC METAB OLIC PANEL glucose 110 mg/dL 70-99 high Not Available [facility] (Lab) [address] [place], [address], 08/19/2022 21:22:33 08/20/19 23 08/19/2022 BASIC METAB OLIC PANEL BUN 18 mg/dL 8-19 Not Available [facility] (Lab) [address] [place], [address], 08/19/2022 21:22:33 08/20/19 23 08/19/2022 BASIC METAB OLIC PANEL creatinine 0.65 mg/dL 0.66-1 .25 low Not Available [facility] (Lab) [address] [place], [address], 08/19/2022 21:22:33 08/20/19 23 08/19/2022 BASIC METAB OLIC PANEL GFR >60 Refer ence Range : [facility] ge GFR Healt hy Adult : >60 mL/mi n/1.7 3 m2 Chron ic Kidne y Disea se: 15-60 mL/mi n/1.7 3 m2 Kidne y Failu re: <15/m L/min /1.73 m2 www.n iddk. nih.g ov The MDRD study equat ion has not been valid ated in child obie <18 years of age; pregn ant women ; the elder ly >85 years of age; or in some racia l or ethni c subgr oups, such as Hispa nics. Outsi de the valid ated antoinette eters , estim ated GFR is less accur ate, requi ring clini chinedu judgm ent on a case- by-ca se basis . Clini chinedu inter preta tion for other races and ages must be made by the clini mahamed. The MDRD study equat ion has not been valid ated for the evalu ation of serum creat inine relat ed to nutri [facility] l statu s or medic ation usage . For perso ns <18 years of age, a pedia tric GFR calcu lator is avail able on the [facility] websi te: https ://anette isbell.christel diaz.o rg/pr gomezess albertinaal s/kdo qi/gf r_cal culat or Not Available [facility] (Lab) [address] [place], [address], 08/19/2022 21:22:33 08/20/1908/19/2022 BASIC METAB OLIC PANEL calcium 9.7 mg/dL 8.4-10 .2 Not Available [facility] (Lab) [address] [place], [address], 08/19/2022 21:22:33 08/20/19 23 08/19/2022 HEMOG LOBIN A1C HA1C 5.4 % 4.0-6. 0 Diabe victor hugo Bárbarae calixto Crite huey: <5.7% Consi stent with absen ce of diabe victor hugo 5.7-6 .4% Consi stent with incre ased risk for diabe victor hugo (pred iabet es) >OR=6 .5% Consi stent with diabe victor hugo REFER ENCE: Diabe victor hugo Care 2016, 39(Fernandez ppl.1 ):s13 -s22 Not Available [facility] (Lab) [address] [place], [address], 08/19/2022 21:27:08 09/27/19 23 09/26/2022 LIPID PANEL cholesterol 281 mg/dL 140-19 9 high NIH KRUPA NSUS RECOM MENDA TION FOR JEANETH STERO L: ADULT CHILD LOW RISK: <200 <170 BORDE RLINE : <200- 239 ----- HIGH RISK: >240 >200 Not Available [facility] (Lab) [address] [place], [address], 09/26/2022 19:37:55 09/27/1909/26/2022 LIPID PANEL triglyceride s 116 mg/dL 0-150 NIH KRUPA NSUS REPOR T RECOM MENDA TION FOR TRIGL YCERI MACHO: ADULT CHILD LOW RISK: <150 ----- BODER LINE: 150-1 99 ----- HIGH RISK: >200 ----- Not Available [facility] (Lab) [address] [place], [address], 09/26/2022 19:37:55 09/27/19 23 09/26/2022 LIPID PANEL HDL cholesterol 62 mg/dL 40- Not Available [facility] (Lab) [address] [place], [address], 09/26/2022 19:37:55 09/27/19 23 09/26/2022 LIPID PANEL LDL cholesterol, calculated 196 mg/dL 0-130 high NIH KRUPA NSUS REPOR T RECOM MENDA TIONS FOR LDL: ADULT CHILD LOW RISK <130 <110 (OPTI MAL LDL) <100 ----- BORDE RLINE : 130-1 59 ----- HIGH RISK: >160 >130 A TRIGL YCERI DE RESUL T >400 INVAL IDATE S THE CALCU LATIO N FOR LDL FRACT IONAT ION - THE LDL RESUL T WILL NOT BE REPOR COCO. Not Available [facility] (Lab) [address] [place], [address], 09/26/2022 19:37:55 07/26/19 23 09/27/2021 audio gram + tympa nogra m No observ ation record ed. [email or web address] Not Available 2022 14:51:46 08/06/19 23 08/05/2022 cardi ac monit or No observ ation record ed. [facility] [address], [place], [address], 08/05/2022 11:17:19 09/07/19 23 09/06/2022 CT, chest , w/o contr ast No observ ation record ed. [address], [address], 09/09/2022 12:31:27 10/18/19 23 10/10/2022 home sleep study No observ ation record ed. [email or web address] [facility] [address], [place], [address], 10/22/2022 12:24:31 10/25/19 23 10/23/2022 elect romyo gram + nerve condu ction study No observ ation record ed. [email or web address] [address], [address], 09/14/2023 12:18:11 01/28/20 23 01/24/2023 compl ete PFT w/ post [facility] hodil ator violet metry * No observ ation record ed. [facility] ([facility] Sched[facility]) [address] [place], [address], 01/27/2023 10:03:09 02/04/20 23 02/03/2023 CT, chest , w/o contr ast No observ ation record ed. [email or web address] [facility] [address] [facility] [place], [address], 02/04/2023 13:01:07 11/27/19 24 11/26/2023 CT, sinus es, w/o contr ast No observ ation record ed. [email or web address] [facility] [address] [facility] [address], [place], [address], 12/10/2023 13:59:42 Result Notes None recorded. Problems Name Problem SNOMED Code Status Onset Date Resolution Date Notes Provider Name and Address Organization Details Recorded Time Osteoarthr itis 638172135 Active 2020 Not Available [facility] 3 00:21:26 Hyperlipid emia 56159564 Active 2020 Not Available [facility] 3 00:21:26 Prediabete s 551447919 Active 2021 Not Available [facility] 3 00:21:26 Sensorineu ral hearing loss of bilateral ears 233822622 Active 2022 Not Available [facility] 3 00:21:26 Mixed anxiety and depressive disorder 004207312 Active 2022 Not Available [facility] 3 00:21:26 Vitamin D deficiency 11133347 Active 2022 Not Available [facility] 3 00:21:26 Bilateral carpal tunnel syndrome 8557360805988 9101 Active 2022 Not Available [facility] 3 00:21:26 Acute conjunctiv itis of left eye 2999551180739 05 Active 2022 Raisa Conde MD [address] [facility], [facility] [address], [place], [address] , [facility] 3 13:38:53 Notes:Chest CT 02/03/23 mild bronchiectasis, mild pulm fibrosis Medical History: Depression/Anxiety Bilateral sensorineural hearing loss COVID infection 12/2022 Postnasal drip Eosinophils 80/uL IgE 29 IU/mL AAT PiMM 139 mg% (+) homogeneous CHRISTINA 1:640 Mild pulm fibrosis Mild bronchiectasis Hyperlipidemia Prediabetes BARBARA Vit D deficiency Osteoporosis Cervical/Lumbar levoscoliosis Cervical/Lumbar DDD Bilateral CTS Hands/Feet OA Procedure History: T&A 1961 Left ear surgery 1989 SAM-BSO 2002 Left bunionectomy 2004 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 Procedures Surgical History Date Name Laterality Status Provider Name and Address Organization Details Recorded Time excision of bunion completed Not Available [facility] 07/10/2022 23:03:31 hysterectomy [facility] Not [facility]31 Remove tonsils and adenoids completed Not Available [facility] 07/10/2022 23:03:31 Imaging Results Imaging Date Name Status LastModified by Organization Details LastModified Time 09/27/2021 audiogram + tympanogram completed [facility] Information not available 10/01/2022 14:51:46 08/05/2022 cardiac exercise physiologist completed [address] [facility] [address], [place], [address], 08/05/2022 11:17:19 09/06/2022 CT, chest, w/o contrast completed [address], [address], 09/09/2022 12:31:27 10/10/2022 home sleep study completed [address] [facility] [address], [place], [address], 10/22/2022 12:24:31 10/23/2022 electromyogram + nerve conduction study completed [address], [address], 09/14/2023 12:18:11 01/24/2023 complete PFT w/ post bronchodilator spirometry* completed [facility] ([facility]) [address] [place] [address], [address], 01/27/2023 10:03:09 02/03/2023 CT, chest, w/o contrast completed [address], [place], [address], 02/04/2023 13:01:07 11/26/2023 CT, sinuses, w/o contrast completed [email or web address] [facility] [address] Ceballos Formerly named [facility], [place], [address], 12/10/2023 13:59:42 Procedure Notes None recorded. Medical Equipment None Reported. Allergies Allergen ID Allergen Name Allergen Category Reaction Reaction Severity Criticality Documentation Date Start Date Code Code System Note Provider Name and Address Organization Details Recorded Time 59904 codeine medicatio n nausea Not available Not available 07/10/2022 2670 RxNorm Not Available [facility] 23:05:14 52136 Substance with sulfonami de structure and antibacte rial mechanism of action (substanc e) medicatio n hives Not available Not available 07/10/2022 99604 8003 SNOMED Not Available [facility] 3 23:05:15 Medications Name Sig Start Date Stop Date Status Note LastModified by Organization Details LastModified Time prednisone 20 mg tablet 3 po qday x 3 days then 2 po qday x 3 days then 1 po qday x 3 days then 1/2 po qday x 3 days then stop active Not Available Not Available No t Available prednisone 5 mg tablet TAKE 1-3 TABLETS BY ORAL ROUTE ONCE DAILY 10/09 completed Not Available Not Available Not Available sulfasalazi ne 500 mg tablet,marsha yed release TAKE 3 TABLETS BY ORAL ROUTE 2 TIMES A DAY FOR 90 DAYS 01/24 completed Not Available Not Available Not Available omeprazole 40 mg capsule,del ayed release TAKE 1 CAPSULE BY MOUTH EVERY DAY active Not Available Not Available No t Available tramadol 50 mg tablet TAKE 1 TABLET BY MOUTH THREE TIMES A DAY NEEDED FOR PAIN ALONG WITH OTC TYLENOL active Not Available Not Available No t Available triamcinolo ne acetonide 0.1 % topical cream APPLY A THIN LAYER TO THE AFFECTED AREA(S) BY TOPICAL ROUTE 2 TIMES PER DAY 10/01 completed Not Available Not Available Not Available fenofibrate micronized 134 mg capsule TAKE 1 CAPSULE BY MOUTH EVERY DAY 12/11 completed Not Available Not Available Not Available terbinafine HCl 250 mg tablet TAKE 1 TABLET BY MOUTH EVERY DAY 12/11 completed Not Available Not Available Not Available naproxen sodium 550 mg tablet TAKE 1 TABLET BY MOUTH EVERY 12 HOURS NEEDED 04/25 completed Not Available Not Available Not Available polymyxin B sulfate 10,000 unit-trimet hoprim 1 mg/mL eye drops INSTILL 1 DROP INTO AFFECTED EYE(S) EVERY 6 HOURS FOR 7 DAYS active Not Available Not Available No t Available nystatin-tr iamcinolone 100,000 unit/g-0.1 % topical cream APPLY TO AFFECTED AREA TWICE A DAY FOR 7 DAYS 12/11 completed Not Available Not Available Not Available betamethaso ne dipropionat e 0.05 % topical cream 12/13 completed Not Available Not Available Not Available diclofenac sodium 75 mg tablet,marsha yed release TAKE 1 TABLET BY MOUTH TWICE A DAY active Not Available Not Available No t Available clobetasol 0.05 % topical ointment 12/13 completed Not Available Not Available Not Available methylpredn isolone 4 mg tablets in a dose pack TAKE 6 TABLETS ON DAY 1 DIRECTED ON PACKAGE AND DECREASE BY 1 TAB EACH DAY FOR A TOTAL OF 6 DAYS 10/01 completed Not Available Not Available Not Available albuterol sulfate HFA 90 mcg/actuati on aerosol inhaler INHALE 2 PUFFS EVERY 4 HOURS NEEDED FOR WHEEZING OR SHORTNESS OF BREATH 12/11 completed Not Available Not Available Not Available rosuvastati n 5 mg tablet TAKE 1 TABLET BY MOUTH EVERY DAY 09/26 completed Not Available Not Available Not Available escitalopra m 5 mg tablet TAKE 1 TABLET BY MOUTH EVERY DAY active Not Available Not Available No t Available Vitamin C active Not Available Not Adrianna ilable Not Available multivitami n active Not Available Not Available Not Available Athlete's Foot (terbinafin e) 1 % topical cream APPLY TO AFFECTED AREA TWICE A DAY 12/11 completed Not Available Not Available Not Available Eucrisa 2 % topical ointment 12/13 completed Not Available Not Available Not Available Vitals Date Recorded Body height Body mass index (BMI) Body weight Body temperature Heart rate Oxygen saturation Oxygen saturation in Arterial blood by Pulse oximetry Systolic blood pressure Diastolic blood pressure Provider Name and Address Organization Details Last Updated DateTime 3 147.32 cm 29.1 kg/m2 88555.3 4 g 97.6 [degF] 94 /min 96 % 96 % 118 mm[Hg] 64 mm[Hg] Omar Morgan RN [facility] [employer] [facility] 3 14:07:00 Date Recorded Body height Body mass index (BMI) Body weight Body temperature Oxygen saturation Oxygen saturation in Arterial blood by Pulse oximetry Heart rate Systolic blood pressure Diastolic blood pressure Provider Name and Address Organization Details Last Updated DateTime 3 147.32 cm 29.3 kg/m2 26969.9 3 g 97.6 [degF] 97 % 97 % 66 /min 116 mm[Hg] 82 mm[Hg] Xiao Mendoza MA [facility] [employer] [facility] 3 11:59:18 Date Recorded Heart rate Respiratory rate Provider N lou and Address Organization Details Last Updated DateTime 10/09/2022 66 /min 15 /min Hernandez Charles MD [address], [employer] [address], [place], [address], [facility] 10/09/2022 12:31:05 Date Recorded Body height Body mass index (BMI) Body weight Body temperature Heart rate Oxygen saturation Oxygen saturation in Arterial blood by Pulse oximetry Systolic blood pressure Diastolic blood pressure Provider Name and Address Organization Details Last Updated DateTime 3 147.32 cm 27 kg/m2 56857.4 2 g 97.9 [degF] 62 /min 96 % 96 % 120 mm[Hg] 70 mm[Hg] HARDY Fleming [facility] 3 10:21:25 Date Recorded Heart rate Respiratory rate Provider N lou and Address Organization Details Last Updated DateTime 01/24/2023 62 /min 15 /min Hernandez Charles MD [address], [address], [place], [address], [facility] 01/24/2023 10:52:01 Social History Question Answer Notes LastModified by Organizat ion Details LastModified Time Tobacco Smoking Status Never Smoker Not Available [facility] 07/10/2022 23:03:24 Do You Have An Advance Directive? Yes [id number] Information not available 07/10/2022 Do You Wear A Helmet When Biking? Yes MIGRATION.528687 5492 Information not available 07/10/2022 Are You Blind Or Do You Have Difficulty Seeing? No MIGRATION.680014 8272 Information not available 07/10/2022 In The 14 Days Before Symptom Onset, Have You Had Close Contact With A Laboratory-confir med COVID-19 While That Case Was Ill? No Information not available 10/09/2022 In The 14 Days Before Symptom Onset, Have You Had Close Contact With A Person Who Is Under Investigation For COVID-19 While That Person Was Ill? No Information not available 10/09/2022 Are You Deaf Or Do You Have Serious Difficulty Hearing? Yes MIGRATION.301120 6361 Information not available 07/10/2022 What Type Of Diet Are You Following? REGULAR MIGRATION.909152 4235 Information not available 07/10/2022 What Is The Highest Grade Or Level Of School You Have Completed Or The Highest Degree You Have Received? [id number] MIGRATION.640861 1119 Information not available 07/10/2022 Have There Been Any Changes To Your Family Or Social Situation? No MIGRATION.924036 6356 Information not available 07/10/2022 What Is The Fluoride Status Of Your Home? Unknown MIGRATION.017529 5384 Information not available 07/10/2022 Are There Any Guns Present In Your Home? No MIGRATION.753903 3920 Information not available 07/10/2022 Do You Use Insect Repellent Routinely? No MIGRATION.797437 9918 Information not available 07/10/2022 Where Do You Live? [facility] MIGRATION.604488 2951 Information not available 07/10/2022 What Was The Date Of Your Most Recent Tobacco Screening? 01/24/2023 [email or web address] Information not available 01/24/2023 Have You Ever Been Counseled For Unhealthy Alcohol Use? No MIGRATION.975225 0605 Information not available 07/10/2022 Do You Have Any Pets? No MIGRATION.103837 7018 Information not available 07/10/2022 What Is Your Relationship Status? MIGRATION.997783 2359 Information not available 07/10/2022 Do You Use Your Seat Belt Or Car Seat Routinely? Yes MIGRATION.160374 0501 Information not available 07/10/2022 Do You Have Smoke And Carbon Monoxide Detectors In Your Home? Yes MIGRATION.328116 3369 Information not available 07/10/2022 Are You Passively Exposed To Smoke? No MIGRATION.088715 4941 Information not available 07/10/2022 Are There Any Smokers In Your House? No MIGRATION.623967 5526 Information not available 07/10/2022 Do You Participate In Social Media? No MIGRATION.544138 2301 Information not available 07/10/2022 Do You Use Sunscreen Routinely? Yes MIGRATION.573525 1175 Information not available 07/10/2022 Has Tobacco Cessation Counseling Been Provided? No MIGRATION.134972 0590 Information not available 07/10/2022 Have You Recently Traveled Abroad? No MIGRATION.869965 6337 Information not available 07/10/2022 Do You Have Difficulty Walking Or Climbing Stairs? Yes MIGRATION.926025 7806 Information not available 07/10/2022 Are You Currently In School? No MIGRATION.805488 3890 Information not available 07/10/2022 Do You Have Any Dietary Restrictions? No MIGRATION.421768 6466 Information not available 07/10/2022 Sex: Unknown Functional Status Question Answer Note LastModified by [employer] ion Details LastModified Time Do you use any illicit or recreational drugs? No MIGRATION.4526680 026 Information not available 07/10/2022 Do you or have you ever used any other forms of tobacco or nicotine? No MIGRATION.2454623 026 Information not available 07/10/2022 What is your level of alcohol consumption? Occasional MIGRATION.3266529 026 Information not available 07/10/2022 Do you have transportation difficulties? No MIGRATION.9272946 026 Information not available 07/10/2022 Are you able to walk? YESWOREST MIGRATION.0416609 026 Information not available 07/10/2022 Do you have difficulty doing errands alone? No MIGRATION.2011063 026 Information not available 07/10/2022 Are you able to care for yourself? Yes MIGRATION.3500077 026 Information not available 07/10/2022 Do you have difficulty dressing or bathing? No MIGRATION.4819202 026 Information not available 07/10/2022 What is your exercise level? Moderate MIGRATION.8441379 026 Information not available 07/10/2022 Mental Status Question Answer Note LastModified by Organizat ion Details LastModified Time Do you feel stressed (tense, restless, nervous, or anxious, or unable to sleep at night)? [id number] MIGRATION.26298429 26 Information not available 07/10/2022 Do you have difficulty concentrating, remembering or making decisions? No MIGRATION.89356122 26 Information not available 07/10/2022 Family History Relationship Description Onset Age of this Age Resolved Age Notes LastModified by Organization Details LastModified Time Father Heart disease MIGRATION.735 [id number] Not available 07/10/2022 23:03:34 Brother Heart disease MIGRATION.757 [id number] Not available 07/10/2022 23:03:34 Brother Diabetes mellitus MIGRATION.661 1063915 Not available 07/10/2022 23:03:34 Brother Arthritis MIGRATION.598 9249539 Not available 07/10/2022 23:03:34 Brother Osteoporosis MIGRATION.0 30 [id number] Not available 07/10/2022 23:03:34 Sister Heart disease MIGRATION.041 [id number] Not available 07/10/2022 23:03:34 Sister Diabetes mellitus MIGRATION.691 0796445 Not available 07/10/2022 23:03:34 Sister Malignant tumor of breast MIGRATION.419 3921763 Not available 07/10/2022 23:03:34 Sister Arthritis MIGRATION.336 9011990 Not available 07/10/2022 23:03:34 Sister Osteoporosis MIGRATION.0 30 2199235 Not available 07/10/2022 23:03:34 Mother Arthritis MIGRATION.923 [id number] Not available 07/10/2022 23:03:34 Father Rheumatoid arthritis [email or web address] Not available 2022 12:25:08 Son Rheumatoid arthritis [email or web address] Not available 2022 12:25:24 Notes:NO ENT Medical History Condition Response ARTHRITIS Y DIZZINESS Y BACK / NECK PROBLEMS Y HAVE YOU BEEN HOSPITALIZED OR SEEN IN [facility] IN THE PAST YEAR ? N FOOT PROBLEM Y HIGH CHOLESTEROL / HYPERLIPIDEMIA Y Gynecological History Statement/Question Response Dislike of Light during Menstrual Headac he N How many live births 4 Current Control Method Hysterectom y Breast Problems NO Obstetrics History GPAL:G 4 P 4 0 0 4 Type Value Full Term 4 Living 4 Total 4 Immunizations Vaccine Type Date Status Note Provider Nam e and Address Organization Details Recorded Time Influenza, high-dose, quadrivalent, PF 2 completed Not Available [facility] 02/05/2023 00:21:26 pneumococcal polysaccharide PPV23 2 completed Not Available [facility] 02/05/2023 00:21:26 Past Encounters Encounter ID Performer Location Encounter Start Date Encounter Closed Date Diagnosis/Indication Diagnosis SNOMED-CT Code Diagnosis ICD10 Code Diagnosis Note [id number] Raisa Conde MD [facility] Primary [place] [address] [facility] [address] [place] [address] 12/11/2020 00:00:00 12/11/2020 18:08:57 [id number] MARIANA Larios [facility] Primary [place] [address] [facility] [address] [place] [address] 05/07/2021 00:00:00 05/07/2021 09:42:20 [id number] Raisa Conde MD [facility] Primary [place] [address] [facility] [address] [place] [address] 09/26/2021 00:00:00 10/09/2021 08:03:46 [id number] Raisa Conde MD [facility] Primary [place] [address] [facility] [address] [place] [address] 11/06/2021 00:00:00 11/06/2021 10:10:23 [id number] Desmond Tran DPM [facility] Podiatry [place] [address] [address] 12/13/2021 00:00:00 12/13/2021 12:00:34 [id number] Raisa Conde MD [facility] Primary [place] [address] [facility] [address] [place] [address] 03/12/2022 00:00:00 04/10/2022 18:06:07 [id number] Raisa Conde MD [facility] Primary [place] [address] [facility] [address] [place] [address] 04/25/2022 00:00:00 05/10/2022 09:06:02 [id number] Raisa Conde MD [facility] Primary Care [address] [place] [address] 06/04/2022 00:00:00 06/10/2022 18:21:08 [id number] Alex Gatica MD [facility] ENT [place] [address] [place] [address] 07/18/2022 11:29:17 07/18/2022 12:16:57 Sensorineural hearing loss of bilateral ears 250349396 H90.3 [id number] Raisa Conde MD [facility] Primary Care [address] [place] [address] 07/30/2022 11:38:46 07/30/2022 12:17:28 CT of chest abnormal 1602115473 8981484 R93.89 CT coronary calcium test showed suggestion of pulmonary fibrosis, need CT chest to evaluate further Fatigue 10968212 R53.83 R94.39 Will have cardiac cath on 09/02/22may continue activities as tolerated in meantime Mixed anxi ety and depressive disorder 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 restart escitalopr am 5 mg daily with foodf/u in 4-6 weeks or sooner if needed [id number] Raisa Conde MD [facility] Primary Care [address] [place] [address] 08/19/2022 14:59:34 08/19/2022 16:09:35 [id number] Raisa Conde MD [facility] Primary Care [place] [address] [place] [address] 09/25/2022 14:00:56 09/25/2022 14:28:50 Bilateral carpal tunnel syndrome 6222245973 4591456 G56.03 can wear cock up wrist splintsEMG /nerve conduction ordered Hyperlipidemia 59527241 E78.5 Z79.899 will fax results to Dr. Yarbrough [id number] Raisa Conde MD [facility] Primary Care [place] [address] [facility] [address] [place] [address] 09/26/2022 08:38:42 09/26/2022 10:22:47 [id number] Hernandez Charles MD [facility] [address] [address] 10/09/2022 11:35:48 10/09/2022 12:39:16 Dyspnea on exertion 98979284 R06.09 R05.9 T78.40XA D89.9 J84.9 [id number] MD ELIAS [facility] [address] [address] 01/24/2023 09:47:57 01/27/2023 08:06:05 Dyspnea on exertion 15276961 R06.09 R05.9 D89.9 J84.9 M32.9 Health Concerns Section Related Observation LastModified by Organization Detai ls LastModified Time None Recorded Concern Status LastModified by Organization Details LastModified Time None Recorded Advance Directives Directive Y: Payers Encounter Date Sequence Insurance Name Policy Number Policy Neri Covered Member ID Neri Member ID Guarantor Name 08/19/2022 1 [place] Heather A Chatsworth [id number] Heather A Chatsworth 08/19/2022 2 [facility] HEALTH BENEFIT PLAN (PPO) 32 Heather A Chatsworth [id number] Heather A Chatsworth 09/25/2022 1 [place] Heather A Chatsworth [id number] Heather A Chatsworth 09/25/2022 2 [facility] HEALTH BENEFIT PLAN (PPO) 32 Heather A Chatsworth [id number] Heather A Chatsworth 09/26/2022 1 [place] Heather A Chatsworth [id number] Heather A Chatsworth 09/26/2022 2 [facility] HEALTH BENEFIT PLAN (PPO) 32 Heather A Chatsworth [id number] Heather A Chatsworth 10/09/2022 1 [place] Heather A Toñito [id number] Heather Sibley 10/09/2022 2 [facility] HEALTH BENEFIT PLAN (PPO) 32 Heather Sibley [id number] Heather Sibley 01/24/2023 1 [place] Heather Sibley [id number] Heather Sibley 01/24/2023 2 [facility] HEALTH BENEFIT PLAN (PPO) 32 Heather Sibley [id number] Heather Sibley Notes Date Note Type Note Provider Name and Address Organization Details Recorded Time 09/25/2022 text/html has cut grass, s wiSentons laps, has played golf since her cardiac cath having pain and numbness/tingling in bilateral hands, wakes her at night Raisa Conde MD [address] [place] [address], [address], [facility] [employer] 10/08/2022 22:28:35 10/09/2022 text/html Primary care/Referring provider: Raisa Conde MD [phone] Patient is here to go over shortness of breath evaluation/management . Initial development of shortness of breath: uration of shortness of breath: 1 yearCondition of shortness of breath: worseningTiming of shortness of breath: noneFrequency: up to 4 times a dayLimits activities: yesAggravating factors: walking, going up stairs, playing golfAlleviating factors: rest Modified [employer] [place] (mMRC) Dyspnea Scale - Grade 2Grade 0 I only get breathless with strenuous exercise .Grade 1 I get short of breath when hurrying on the level or walking up a slight hill .Grade 2 I walk slower than people of the same age on the level because of breathlessness or have to stop for breath when walking at my own pace on the level .Grade 3 I stop for breath after walking about 100 yards or after a few minutes on the level .Grade 4 I am too breathless to leave the house or I am breathless when dressing . Treatment history:None Other symptoms:Drooling: noDysarthria: noNeck pain: noOdynophagia: noDysphagia: noWeak mastication: noFacial weakness: noNasal speech: noProtruding tongue: noProductive cough: noWheezing: noChest tightness: yesOrthopnea: noFrequent throat clearing or swallowing: noPalpitations: noHeartburn: noEdema: no Environmental exposures:Nicotine smoke: 05/31 ppd 1968 onlyPaint: noDye: noDust mites: yesMold: noDamp basement: noWood burning stove: noAnimal dander: dog and catCockroaches: noPollen: yesArsenic: noAsbestos: noBeryllium: noCadmium: noChromium: noCoal smoke: noDiesel fumes: noNickel: noSilica: noSoot: no EPWORTH SLEEPINESS SCALE (ESS) CHANCE OF DOZING SCORE0 = would never doze1 = slight chance of dozing2 = moderate chance of dozing3 = high chance of dozing SITUATION AND CHANCE OF DOZINGSitting and reading - 3Watching television - 3Sitting inactive in a public place (e.g. a theater or meeting) - 0As a passenger in a car for an hour without a break - 2Lying down to rest in the afternoon when circumstances permit - 3Sitting and talking to someone - 0Sitting quietly after lunch without alcohol - 2In a car, while stopped for a few minutes in the traffic - 0TOTAL SCORE 13Subjectively, patient has a moderate chance of dozing. Hernandez Charles MD [address] [place] [address], [address], [place] [facility] 10/09/2022 12:31:18 01/24/2023 text/html Primary care/Referring provider: Raisa Conde MD [phone] Patient is here to go over her lab data and PFT as part of her shortness of breath evaluation/management . Initial development of shortness of breath: uration of shortness of breath: 1 yearCondition of shortness of breath: stableTiming of shortness of breath: noneFrequency: up to 4 times a dayLimits activities: yesAggravating factors: walking, going up stairs, playing golfAlleviating factors: rest Modified [employer] [place] (mMRC) Dyspnea Scale - Grade 2Grade 0 I only get breathless with strenuous exercise .Grade 1 I get short of breath when hurrying on the level or walking up a slight hill .Grade 2 I walk slower than people of the same age on the level because of breathlessness or have to stop for breath when walking at my own pace on the level .Grade 3 I stop for breath after walking about 100 yards or after a few minutes on the level .Grade 4 I am too breathless to leave the house or I am breathless when dressing . Treatment history:None Other symptoms:Drooling: noDysarthria: noNeck pain: noOdynophagia: noDysphagia: noWeak mastication: noFacial weakness: noNasal speech: noProtruding tongue: noProductive cough: noWheezing: noChest tightness: yesOrthopnea: noFrequent throat clearing or swallowing: noPalpitations: noHeartburn: noEdema: no Environmental exposures:Nicotine smoke: 05/31 ppd 1967 onlyPaint: noDye: noDust mites: yesMold: noDamp basement: noWood burning stove: noAnimal dander: dog and catCockroaches: noPollen: yesArsenic: noAsbestos: noBeryllium: noCadmium: noChromium: noCoal smoke: noDiesel fumes: noNickel: noSilica: noSoot: no EPWORTH SLEEPINESS SCALE (ESS) CHANCE OF DOZING SCORE0 = would never doze1 = slight chance of dozing2 = moderate chance of dozing3 = high chance of dozing SITUATION AND CHANCE OF DOZINGSitting and reading - 0Watching television - 0Sitting inactive in a public place (e.g. a theater or meeting) - 0As a passenger in a car for an hour without a break - 1Lying down to rest in the afternoon when circumstances permit - 3Sitting and talking to someone - 0Sitting quietly after lunch without alcohol - 1In a car, while stopped for a few minutes in the traffic - 0TOTAL SCORE 5Subjectively, patient has a moderate chance of dozing. Hernandez Charles MD [address] [facility] [address], [place], [address], [place] [facility] [employer] 01/24/2023 10:52:17 OBGyn Episode No OBEpisode recorded.
--- OUTSIDE RECORDS SUMMARY | 2024-09-28 09:09 | XMS_ITS | Continuity of Care Document ---
Author Organization [facility] Address [address] [place] [address] Phone Care Team Providers Care Automotive Title Clerk Name Role Phone Terrence Hawthorne MD Unavailable Unavailable Procedures Procedure Date COVID-19, Amplified Probe Technique INFLUENZA, RAPID INFLUENZA B, RAPID - OFFICE LAB 020 OFFICE/OUTPATIENT VISIT NEW Advance Directives Directive Yes / No Effective Date File Name No Information Encounters Encounter Description Practice Location Reason(s) For Visit Diagnoses Date Provider Providers Copied on Encounter [facility], [address], [place], [place], [address], [place] tel:[phone] [facility] No Information 0 Christoph Ybarra. [address] [place], [place], [id number], [place]. tel:[phone] OFFICE/OUTPAT IENT VISIT [facility], [address], [place], [place], [id number], [place] tel:[phone] [facility] acute visit (chief complaint) Viral infection, unspecified 0 Emile Peterson. [address], [place], [place], [address], [place]. tel:[phone] Referring Provider: Nicholas Baptiste, [address], [place], [address] . tel:[phone] Family History Family Member Type Diagnosis Age At Onset No Information Payers Payer name Insurance type Covered alliance party ID Authoriza tion(s) CIGNA [id number] MEDICARE MB [id number] Social History Type Description Quantity Date Captured Comments Sex Female Smoking Status No Information Chief Complaint And Reason For Visit No Information Reason For Referral Reason For Referral No Information History Of Present Illness Encounter Date Complaint History Of Prese nt Illness acute visit Pt presents with COVID type symptoms, pt was seen outside in full PPE. No vitals were taken to limit staff exposure. Pt reports that on Fri she started having sore throat and dry cough. No fever or chills. Reports that today she has myalgia and dry cough but sore throat has improved. Denies diarrhea, rash, loss of taste or smell. 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 Pt sister has similar symptoms. ROS: negative for fever, nausea, SOB, chest pain, or dizziness. Functional Status Date Functional Assessmen t No Information Instructions Date Instruction Additional Infor miguel -Flu negative-COVID: Pending-discussed symptomatic treatment, adequate hydration, and COVID precaution. -Advised pt that I am interventional neuroradiologist this weekend if symptoms worsens or anything changes to call me. Pt voiced understanding Related to Viral infection, unspecified Assessments Type Assessment Date No Information Patient Care Teams Name Effective Dates (start - stop) Status Members No Information
--- OUTSIDE RECORDS SUMMARY | 2024-09-28 09:09 | XMS_ITS | Referral Summary ---
Author Organization [facility] [address] Address [address] [place] [address] Care Team Providers Care Underwriting Operations Manager Name Role Phone Jessy Duron MD Primary [...] (07/26/2020 3:52 PM CDT): Requests referral to community relations assistant today. 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
--- OUTSIDE RECORDS SUMMARY | 2024-09-28 09:09 | XMS_ITS | Clinical Summary ---
Author Organization [facility] Address [address] [place] [address] Care Team Providers Care Tie Tape Machine Operator Name Role Phone Robbie Collins MD Primary Care Provider [phone] Source Comments [facility],non-owned Affiliates and Associated Physician Practices is amultiple site organization consisting of ambulatory clinics and hospital sitesin [place], [place], [place] and [place]. This disclosure is being madepursuant to the Care Everywhere program and may not contain all information available regarding this patient. Last updated 18.[facility] Allergies Active Allergy Reactions Criticality Noted Date Comments Codeine Dizziness 07/24/2022 Medications * Be aware that medications may not be up to date on this document. Alwaysverify current medications with the patient. predniSONE (Deltasone) 10 MG tablet Orally take 6 tabs a day for 4, then 4 tabs a day for 4 days, then 3 tabs a day for 4 days, then 2 tabs a day for 4 days , then 1 for 4 days. (Total # of Pills 64). 64 tablet 4 Active Additional Information Patient not taking.Reported on 12/04/2023 amoxicillin-cla vulanate (Augmentin) 875-125 MG tablet Take 1 (one) tablet by mouth 2 times daily with morning and evening meal 20 tablet 4 Active Additional Information Patient not taking.Reported on 12/04/2023 cefUROXime (Ceftin) 500 MG tablet Take 1 (one) tablet by mouth once Active fluticasone propionate (Flonase) 50 MCG/ACT nasal spray [place] 2 (two) sprays into each nostril once daily Active Active Problems Problem Noted Date Diagnosed Date Bilateral carpal tunnel syndrome 09/25/2022 Vitamin D deficiency 08/19/2022 Mixed anxiety and depressive disorder 07/30/2022 Sensorineural hearing loss (SNHL) of both ears 0 07/17/2022 Prediabetes 11/06/2021 Hyperlipidemia 12/11/2020 Osteoarthrosis 12/11/2020 Resolved Problems Problem Noted Date Diagnosed Date Resolved Date Acute conjunctivitis of left eye 04/16/2023 12/18/2023 Immunizations Immunization Administration Dates Next Due PNEUMOCOCCAL PPSV23 09/26/2021 Social History Tobacco Use Types Packs/Day Years Used Date Smoking Tobacco: Never Smokeless Tobacco: Never Alcohol Use Standard Drinks/Week Comments Never 0 (1 standard drink = 0.6 oz pur e alcohol) Comments Unknown Sex and Gender Information Value Date Recorded Sex Assigned at Not on file Legal Sex Female 3:40 PM CDT Gender Identity Not on file Sexual Orientation Not on file Last Filed Vital Signs Vital Sign Reading Time Taken Comments Blood Pressure - - Pulse - - Temperature - - Respiratory Rate - - Oxygen Saturation - - Inhaled Oxygen Concentration - - Weight 60.8 kg (134 lb) 12/04/2023 10:41 AM CDT Height 147.3 cm (4' 10) 12/04/2023 10:41 AM CDT Body Mass Index 28.01 12/04/2023 10:41 AM CDT Plan of Treatment Health Maintenance Due Date Last Done Comments BONE DENSITY TESTING 1948 COLON MONITORING 1948 COLONOSCOPY - COLON CA SCREENING 1948 CT COLONOGRAPHY - COLON CA SCREENING 1948 FIT - COLON CA SCREENING 1948 FLEX SIG - COLON CA SCREENING 1948 LIPID TESTING 1948 MAMMOGRAM 1948 MEDICARE AWV 12 MONTHS 1948 HEPATITIS C SCREENING 12/22/1966 DTAP/TDAP/TD VACCINES (1 - Tdap) 12/27/1967 ZOSTER VACCINE (1 of 2) 1998 PNEUMOCOCCAL VACCINE 50+ (2 of 2 - PCV) 09/26/2022 09/26/2021 Respiratory Syncytial Virus (RSV) Vaccine Pt: or over 60 yrs (1 - 1-dose 75+ series) 12/27/2023 COVID-19 VACCINE (2023-2 5 season) 2024 DEPRESSION SCREENING 05/12/2024 COLOGUARD (AGES 45-75) - COL ON CA SCREENING 10/23/2024 10/23/2021 Colorectal Cancer Screening 10/23/2024 INFLUENZA VACCINE (Season Ended) 2025 HEPATITIS B VACCINE Aged Out No longe r eligible based on patient's age to complete this topic HIB VACCINE Aged Out No longer eligi ble based on patient's age to complete this topic HPV VACCINE Aged Out No longer eligi ble based on patient's age to complete this topic MENINGOCOCCAL (Group B) VACC INE SHARED DECISION-MAKING Aged Out No longer eligibl e based on patient's age to complete this topic MENINGOCOCCAL GROUPS A/C/Y/W VACCINE Aged Out No longer eligible b ased on patient's age to complete this topic Insurance MEDICARE [facility] Care Teams Tie Tape Machine Operator Relationship Specialty Start Date End Date Robbie Collins MD [address] [place] [address] PCP - General Internal Medicine 5/30/24
--- NOTE | 2024-09-28 11:15 | NEURO_ITS ---
Impression: # Complains of paresthesia in lower extremities. Non-diabetic. ? # Normal motor and sensory Nerve Conduction Study. ? # Needle/EMG exam not requested. ? # Clinical correlation recommended. Nerve Conduction Studies Anti Sensory Summary Table ?Stim Site NR Peak (ms) P-T Amp (?V) Site1 Site2 Delta-P (ms) Dist (cm) Amadeo (m/s) Left Sup Fibular Anti Sensory (Ant Lat Mall) 14 cm ? 3.0 7.2 14 cm Ant Lat Mall 3.0 16.0 53 Right Sup Fibular Anti Sensory (Ant Lat Mall) 14 cm ? 3.4 12.8 14 cm Ant Lat Mall 3.4 16.0 47 Left Sural Anti Sensory (Lat Mall) Calf ? 3.4 10.9 Calf Lat Mall 3.4 16.0 47 Right Sural Anti Sensory (Lat Mall) Calf ? 3.7 6.4 Calf Lat Mall 3.7 16.0 43 Motor Summary Table ?Stim Site NR Onset (ms) O-P Amp (mV) Site1 Site2 Delta-0 (ms) Dist (cm) Amadeo (m/s) Left Peroneal Motor (Vastus Med) Ankle ? 3.1 3.0 Popit Ankle 7.5 36.0 48 Popit ? 10.6 2.2 Right Peroneal Motor (Vastus Med) Ankle ? 3.1 2.9 Popit Ankle 7.4 35.0 47 Popit ? 10.5 2.0 Left Tibial Motor (Abd Sousa Brev) Ankle ? 3.5 8.7 Knee Ankle 7.8 36.0 46 Knee ? 11.3 5.2 Right Tibial Motor (Abd Sousa Brev) Ankle ? 3.1 3.0 Knee Ankle 7.6 36.0 47 Knee ? 10.7 2.6 F Wave Studies ?NR F-Lat (ms) L-R F-Lat (ms) Left Peroneal (Mrkrs) (EDB) ? 46.79 1.80 Right Peroneal (Mrkrs) (EDB) ? 48.59 1.80 Left Tibial (Mrkrs) (Abd Hallucis) ? 47.16 1.11 Right Tibial (Mrkrs) (Abd Hallucis) ? 46.05 1.11
== END 2024-09-28 08:54 | disposition home or self-care (01) ==
LOC: ANHNEURO 08:56
PROVIDERS: PCP Internal Medicine; Visit Provider Internal Medicine
DX: R20.2 Paresthesia of skin (principal)
CPT/HCPCS: 95910

== ENCOUNTER 2024-09-28 10:37 | Outpatient (CLI) | payer MEDICARE, OTHER, SELFPAY ==
--- OUTSIDE RECORDS SUMMARY | 2024-09-28 10:51 | XMS_ITS | Clinical Summary ---
Author Organization [facility] [place] [place] [address] Address [address] [place] [address] Care Team Providers Care Drying Supervisor Name Role Phone Jessy Duron MD Primary [...] (07/26/2020 3:52 PM CDT): Requests referral to canary raiser today. 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
--- OUTSIDE RECORDS SUMMARY | 2024-09-28 10:51 | XMS_ITS | Continuity of Care Document ---
Author Organization [facility] Address [address] [place] [address] Phone Care Team Providers Care After School Caregiver Name Role Phone Terrence Hawthorne MD Unavailable Unavailable Procedures Procedure Date COVID-19, Amplified Probe Technique INFLUENZA, RAPID INFLUENZA B, RAPID - OFFICE LAB 020 OFFICE/OUTPATIENT VISIT NEW Advance Directives Directive Yes / No Effective Date File Name No Information Encounters Encounter Description Practice Location Reason(s) For Visit Diagnoses Date Provider Providers Copied on Encounter [facility], [address], [place], [place], [address], [place] tel:[phone] [facility] No Information 0 Christoph Ybarra. [address] [place], [place], [address], [place]. tel:[phone] OFFICE/OUTPAT IENT VISIT [facility], [address], [place], [place], [address], [place] tel:[phone] [facility] acute visit (chief complaint) Viral infection, unspecified 0 Emile Peterson. [address], [place], [place], [address], [place]. tel:[phone] Referring Provider: Nicholas Baptiste, [address], [place], [address] . tel:[phone] Family History Family Member Type Diagnosis Age At Onset No Information Payers Payer name Insurance type Covered libertarian ID Authoriza tion(s) CIGNA [id number] MEDICARE MB [id number] Social History Type Description Quantity Date Captured [...] COVID precaution. -Advised pt that I am religion professor this weekend if symptoms worsens or anything changes to call me. Pt voiced understanding Related to Viral infection, unspecified Assessments Type Assessment Date No Information Patient Care Teams Name Effective Dates (start - stop) Status Members No Information
--- OUTSIDE RECORDS SUMMARY | 2024-09-28 10:51 | XMS_ITS | Referral Summary ---
Author Organization [facility] [address] Address [address] [place] [address] Care Team Providers Care Custodial Worker Name Role Phone Jessy Duron MD Primary [...] (07/26/2020 3:52 PM CDT): Requests referral to ophthalmic asst today. 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
--- OUTSIDE RECORDS SUMMARY | 2024-09-28 10:51 | XMS_ITS | Clinical Summary ---
Author Organization [facility] Address [address] [place] [address] Care Team Providers Care Engineering Vice President Name Role Phone Robbie Collins MD Primary Care Provider [phone] Source Comments [facility],non-owned Affiliates and Associated Physician Practices is amultiple site organization consisting of ambulatory clinics and hospital sitesin [place], [place], [place] and [place]. This disclosure is being madepursuant to the Care Everywhere program and may not contain all information available regarding this patient. Last updated 18.[facility] Allergies Active Allergy Reactions Criticality Noted Date [...] fluticasone propionate (Flonase) 50 MCG/ACT nasal spray [place] 2 (two) sprays into each nostril once [...] Insurance MEDICARE [facility] Care Teams Engineering Vice President Relationship Specialty Start Date End Date Robbie Collins MD [address] [place] [address] PCP - General Internal Medicine 5/30/24
== END 2024-09-28 10:38 | disposition home or self-care (01) ==
LOC: ANHAUDIO 10:38
PROVIDERS: PCP Internal Medicine; Visit Provider Internal Medicine
DX: H91.93 Unspecified hearing loss, bilateral (principal)
CPT/HCPCS: 92567

== ENCOUNTER 2024-10-26 10:03 | Outpatient (CLI) | payer MEDICARE, OTHER, SELFPAY ==
--- OUTSIDE RECORDS SUMMARY | 2024-10-26 11:07 | XMS_ITS | CONTINUITY OF CARE DOCUMENT ---
Author Name elbaalexander elbaalexander Address Unknown Organization [facility] Address [address] [place] [address] [address] [place] [address] Phone [phone] Care Team Providers Care Spin Tank Tender Name Role Phone Sohan Yarbrough MD Unavailable [phone] RAISA SOUSA MD Unavailable [phone] RAISA SOUSA MD Unavailable PROBLEMS Condition Status Date Provider Notes Cardiology examination active Sohan Alejandra arthritis active Sohan Yarbrough MD Light headedness active Sohan Yarbrough MD Fatigue active Sohan Yarbrough MD Dyspnea active Yolanda Becker Abnormal stress electrocardiogram active Ashvin Becker ENCOUNTERS Date Type Provider Location Encounter Diag nosis - In-person encounter Office Visit Sohan Yarbrough MD [facility] - In-person encounter Office Visit Sohan Yarbrough MD [facility] Abnormal stress electrocardiogram - In-person encounter Office Visit Sohan Yarbrough MD [facility] Cardiology examinationarthritisLight headednessFatigueDyspnea VITAL SIGNS Date Observation Value Provider Body Mass Index (Ratio) 28.48 kg/m2 Yessy Beckham blood pressure, diastolic 83 mm[Hg] Mi anna Ya blood pressure, systolic 131 mm[Hg] Kyle max Ya oxygen saturation, oximetry 96 % Ashly Ya pulse rate 82 /min Ashly Grace alejandra weight E&M 141 [lb_av] Ashly Grace alejandra respiratory rate E&M 16 /min Apple lal [place] blood pressure, cuff size regular Maddy castillo Ya height E&M 59 [in_i] Ashly Grace alejandra Body Mass Index (Ratio) 30.49 kg/m2 Dyana chris Becker blood pressure, cuff size regular Mendez rrvanessa Gopi blood pressure, diastolic 70 mm[Hg] [facility]ri [facility] pressure, systolic 122 mm[Hg] Johana riley Gopi oxygen saturation, oximetry 96 % Sindy Gopi respiratory rate E&M 14 /min Sindy Skinny edouard pulse rate 86 /min Sindy Carlin [facility] weight E&M 151 [lb_av] Sindy Raphaeldanettee [facility] height E&M 59 [in_i] Sindy Carlinnfe [facility] Body Mass Index (Ratio) 31.30 kg/m2 Dyana [...] Payer name Policy type / Coverage type [place] red green party ID [employer] MEDICARE SECONDARY Commercial insurance com pany [id number] [place] MED[place]ARE PART B Medicare [id number] ADVANCE DIRECTIVES Name Date DISCUSSED - NO DECISION MADE TREATMENT PLAN Date Name Performer [id number],S,C ardiac cath was normal. I recommend statin therapy for LDL of 200 and calcium score of 148. Pt would like to repeat Lipid Panel. She c/o fatigue. Will obtain Home Sleep study. Benji Beckham [id number],C,C T coronary calcium score is 148 in the LAD. Still symptomatic. In view of the above, I recommend cardiac cath (stress echo showed ischemia by EKG but normal by echo criteria). Yolanda Becker [id number],C,C T coronary calcium score is 148 in the LAD. Still symptomatic. In view of the above, I recommend cardiac cath (stress echo showed ischemia by EKG but normal by echo criteria). Yolanda Becker [id number],C,C T coronary calcium score is 148 in the LAD. Still symptomatic. In view of the above, I recommend cardiac cath (stress echo showed ischemia by EKG but normal by echo criteria). Yolanda Becker [id number],C,P t complains of fatigue, dizziness with walking, dyspnea, no chest pain. She states she had normal echo and stress test at [facility]. Will check for orthostatic BP and check telesentry. Will request her tests and review them. Yolanda Becker [id number],C,P t complains of fatigue, dizziness with walking, dyspnea, no chest pain. She states she had normal echo and stress test at [facility]. Will check for orthostatic BP and check telesentry. Will request her tests and review them. Yolanda Becker [id number],C,P t complains of fatigue, dizziness with walking, dyspnea, no chest pain. She states she had normal echo and stress test at [facility]. Will check for orthostatic BP and check [...] had normal echo and stress test at [facility]. Will check for orthostatic BP and check telesentry. Will request her tests and review them. Yolanda Becker Cardiology:Pt compla ins of fatigue, dizziness with walking, dyspnea, no chest pain. She states she had normal echo and stress test at [facility]. Will check for orthostatic BP and check telesentry. Will request her tests and review them. Yolanda Becker Cardiology:Pt compla ins of fatigue, dizziness with walking, dyspnea, no chest pain. She states she had normal echo and stress test at [facility]. Will check for orthostatic BP and check [...]
--- OUTSIDE RECORDS SUMMARY | 2024-10-26 11:08 | XMS_ITS | Data Portability ---
[facility] Address [address] [place] [address] Care Team Providers Care Merchandising Execution Associate Name Role Phone ABDIEL COLLINS Primary Care Provider [phone] Assessment Encounter Date Assessment Date Assessment LastModified by Organization Details LastModified Time 09/05/2023 09/05/2023 Will obtain blood work obtain her old records she will see me back in 4 to 6 months she can use some Tylenol as needed for her arthritic complaints [email or web address] Not available 09/05/2023 22:25:46 11/20/2023 11/20/2023 overweight healthy lifestyle care instructions discussed dizziness and sinusitis we will CT scan her sinuses I will see her back after she has a scan and she is done with the antibiotic she can use some nasal spray to either Flonase [id number] r or saline nasal spray 2 sprays each nostril 4 times a day for the nasal spray 2 sprays each nostril daily for the Flonase Not available 11/30/2023 20:44:54 12/25/2023 12/25/2023 await [...] follow up with me in 4 months [email or web address] Not available 08/01/2024 22:02:37 Plan of Treatment Reminders Order Date Submit Date Provider Last Modified By Organization Details Last Modified Time Details Appointments ANY 15 2024 02:00P M Abdiel Collins MD Not available Not available Not available Lab lipid panel, serum 2023 024 WILLIAMS Robby, [address], [place], [address], 05/25/2024 07:07:53 CMP, serum or plasma 2023 024 GAILZANA Barcenas, [address], [place], [address], 05/25/2024 07:07:54 lipid panel, serum 2023 024 [facility] [address], [place], [address], 09/24/2023 13:12:28 T3, free, serum or plasma 2023 024 [facility] [address], [place], [address], 09/24/2023 13:12:32 T4, free, serum 2023 024 [facility] [address], [place], [address], 09/24/2023 13:12:33 TSH, serum or plasma 2023 024 [place] [address] [facility], [address], [place], [address], 01/07/2024 09:43:05 CBC w/ auto diff 2023 024 GAIL [facility], [address], [place], [address], 09/24/2023 13:12:31 CMP, serum or plasma 2023 024 WILLIAMS [facility], [address], [place], [address], 09/24/2023 13:12:29 vitami n B12 + folate , serum or blood 2023 024 WILLIAMS [facility], [address], [place], [address], 09/24/2023 13:12:30 Referral None record ed. Procedures None record ed. Surgeries None record ed. Imaging nerve conduc tion study - NCS b/l legs added to the arms she is schedu led for July. 2024 025 [facility] [address], [place], [address], 07/22/2024 15:22:02 CT, sinuse s, w/o contra st 2023 024 [facility], [address], [place], [address], 11/27/2023 10:43:21 MAMMO, screen ing, digita l, bilate ral 2023 024 [email or web address] [facility], [address], [place], [address], 03/09/2024 15:26:51 bone densit y 2023 024 [facility], [address], [place], [address], 04/02/2024 15:56:52 Medication Orders Lipito r 10 mg tablet 2023 024 sharon [id number], [address], [place], [address], 05/28/2024 12:46:25 cefuro lilian axetil 500 mg tablet 2023 024 GAIL [id number], [address] [place], [address], 12/25/2023 10:34:37 Flonas e Allerg y Relief 50 mcg/ac tuatio n nasal spray, suspen dayami 2023 024 [email or web address] [id number], [address] [place], [address], 11/20/2023 14:23:48 Patient TargetsNo targets recorded. Patient Instructions Encounter Date Encounter Id Patient Instructions Last Modified By Organization Details Last Modified Time 11/20/2023 [id number] A healthy lifestyle: care instructions [email or web address] Not available 11/20/2023 14:23:48 03/04/2024 [id number] A healthy lifestyle: care instructions [email or web address] Not available 03/04/2024 17:30:37 Reason for Referral None Reported. Results Created Date Observation Date Name Description Value Unit Range Abnormal Flag Note LastModifiedBy Organization Detail LastModifiedTime 09/23/1909/24/2023 LIPID PANEL cholesterol, total 243 mg/dL 100-19 9 above high normal Not Available [facility] ([facility]) [address] [place], [address], 09/24/2023 13:12:28 09/23/1909/24/2023 LIPID PANEL triglyceride s 114 mg/dL 0-149 Not Available [facility] ([facility]) [address] [place], [address], 09/24/2023 13:12:28 09/23/1909/24/2023 LIPID PANEL HDL cholesterol 79 mg/dL >39 Not Available [facility] ([facility]) [address] [place], [address], 09/24/2023 13:12:28 09/23/19 24 09/24/2023 LIPID PANEL VLDL cholesterol chinedu 20 mg/dL 5-40 Not Available [facility] ([facility]) [address] [facility] [place], [address], 09/24/2023 13:12:28 09/23/19 24 09/24/2023 LIPID PANEL LDL chol calc ([facility]) 144 mg/dL 0-99 above high normal Not Available [facility] ([facility]) [address] [place], [address], 09/24/2023 13:12:28 09/23/19 24 09/24/2023 COMP. METAB OLIC PANEL (14) glucose 88 mg/dL 70-99 Not Available [facility] ([facility]) [address] [facility] [place], [address], 09/24/2023 13:12:29 09/23/19 24 09/24/2023 COMP. METAB OLIC PANEL (14) BUN 13 mg/dL 8-27 Not Available [facility] ([facility]) [address] [place], [address], 09/24/2023 13:12:29 09/23/19 24 09/24/2023 COMP. METAB OLIC PANEL (14) creatinine 0.57 mg/dL 0.57-1 .00 Not Available [facility] ([facility]) [address] [place], [address], 09/24/2023 13:12:29 09/23/19 24 09/24/2023 COMP. METAB OLIC PANEL (14) eGFR 95 mL/mi n/1.7 3 >59 Not Available [facility] ([facility]) [address] [place], [address], 09/24/2023 13:12:29 09/23/19 24 09/24/2023 COMP. METAB OLIC PANEL (14) BUN/creatini ne ratio 23 12-28 Not Available [facility] ([facility]) [address] [place], [address], 09/24/2023 13:12:29 09/23/19 24 09/24/2023 COMP. METAB OLIC PANEL (14) sodium 139 mmol/ L 134-14 4 Not Available [facility] ([facility]) [address] [facility], [place], [address], 09/24/2023 13:12:29 09/23/19 24 09/24/2023 COMP. METAB OLIC PANEL (14) potassium 4.2 mmol/ L 3.5-5. 2 Not Available [facility] ([facility] [address] [facility] [place], [address], 09/24/2023 13:12:29 09/23/19 24 09/24/2023 COMP. METAB OLIC PANEL (14) chloride 103 mmol/ L 96-106 Not Available [facility] ([facility] [address] [facility] [place], [address], 09/24/2023 13:12:29 09/23/19 24 09/24/2023 COMP. METAB OLIC PANEL (14) carbon dioxide, total 24 mmol/ L - Not Available [facility] ([facility] [address] [facility] [place], [address], 09/24/2023 13:12:29 09/23/19 24 09/24/2023 COMP. METAB OLIC PANEL (14) calcium 9.0 mg/dL 8.7-10 .3 Not Available [facility] ([facility] [address] [facility] [place], [address], 09/24/2023 13:12:29 09/23/19 24 09/24/2023 COMP. METAB OLIC PANEL (14) protein, total 6.3 g/dL 6.0-8. 5 Not Available [facility] ([facility]) [address] [facility], [place], [address], 09/24/2023 13:12:29 09/23/19 24 09/24/2023 COMP. METAB OLIC PANEL (14) albumin 4.3 g/dL 3.8-4. 8 Not Available [facility] ([facility]) [address] [facility], [place], [address], 09/24/2023 13:12:29 09/23/19 24 09/24/2023 COMP. METAB OLIC PANEL (14) globulin, total 2.0 g/dL 1.5-4. 5 Not Available [facility] ([facility]) [address] [facility], [place], [address], 09/24/2023 13:12:29 09/23/19 24 09/24/2023 COMP. METAB OLIC PANEL (14) A/G ratio 2.2 1.2-2. 2 Not Available [facility] ([facility]) [address] [facility], [place], [address], 09/24/2023 13:12:29 09/23/19 24 09/24/2023 COMP. METAB OLIC PANEL (14) bilirubin, total 0.5 mg/dL 0.0-1. 2 Not Available [facility] ([facility]) [address] [facility], [place], [address], 09/24/2023 13:12:29 09/23/19 24 09/24/2023 COMP. METAB OLIC PANEL (14) alkaline phosphatase 69 IU/L 44-121 Not Available [facility] ([facility] [address] [facility], [place], [address], 09/24/2023 13:12:29 09/23/19 24 09/24/2023 COMP. METAB OLIC PANEL (14) AST (SGOT) 17 IU/L 0-40 Not Available [facility] ([facility]) [address] [facility], [place], [address], 09/24/2023 13:12:29 09/23/19 24 09/24/2023 COMP. METAB OLIC PANEL (14) ALT (SGPT) 9 IU/L 0-32 Not Available [facility] ([facility]) [address] [facility], [place], [address], 09/24/2023 13:12:29 09/23/19 24 09/24/2023 VITAM IN B12 AND FOLAT E vitamin B12 410 pg/mL 232-12 45 Not Available [facility] ([facility]) [address] [facility], [place], [address], 09/24/2023 13:12:30 09/23/19 24 09/24/2023 VITAM IN B12 AND FOLAT E folate (folic acid), serum 17.6 NG/mL >3.0 A serum folat e sara ntrat ion of less than 3.1 ng/mL is consi dered to repre sent clini chinedu defic iency . Not Available [facility] ([facility]) [address] [facility], [place], [address], 09/24/2023 13:12:30 09/23/19 24 09/24/2023 CBC WITH DIFFE RENTI AL/PL ATELE T WBC 4.9 x10e3 /uL 3.4-10 .8 Not Available [facility] ([facility]) [address] [facility], [place], [address], 09/24/2023 13:12:31 09/23/19 24 09/24/2023 CBC WITH DIFFE RENTI AL/PL ATELE T RBC 4.14 x10e6 /uL 3.77-5 .28 Not Available [facility] ([facility]) [address] [facility], [place], [address], 09/24/2023 13:12:31 09/23/19 24 09/24/2023 CBC WITH DIFFE RENTI AL/PL ATELE T hemoglobin 12.5 g/dL 11.1-1 5.9 Not Available [facility] ([facility]) [address] [facility], [place], [address], 09/24/2023 13:12:31 09/23/19 24 09/24/2023 CBC WITH DIFFE RENTI AL/PL ATELE T hematocrit 36.2 % 34.0-4 6.6 Not Available [facility] ([facility]) [address] [facility], [place], [address], 09/24/2023 13:12:31 09/23/19 24 09/24/2023 CBC WITH DIFFE RENTI AL/PL ATELE T MCV 87 fL 79-97 Not Available [facility] ([facility]) [address] [facility], [place], [address], 09/24/2023 13:12:31 09/23/19 24 09/24/2023 CBC WITH DIFFE RENTI AL/PL ATELE T MCH 30.2 pg 26.6-3 3.0 Not Available [facility] ([facility]) [address] [facility], [place], [address], 09/24/2023 13:12:31 09/23/19 24 09/24/2023 CBC WITH DIFFE RENTI AL/PL ATELE T MCHC 34.5 g/dL 31.5-3 5.7 Not Available [facility] ([facility]) [address] [facility], [place], [address], 09/24/2023 13:12:31 09/23/19 24 09/24/2023 CBC WITH DIFFE RENTI AL/PL ATELE T RDW 12.9 % 11.7-1 5.4 Not Available [facility] ([facility]) [address] [place], [address], 09/24/2023 13:12:31 09/23/19 24 09/24/2023 CBC WITH DIFFE RENTI AL/PL ATELE T platelets 247 x10e3 /uL 150-45 0 Not Available [facility] ([facility]) [address] [facility], [place], [address], 09/24/2023 13:12:31 09/23/19 24 09/24/2023 CBC WITH DIFFE RENTI AL/PL ATELE T neutrophils 52 % notest ab. Not Available [facility] ([facility]) [address] [facility], [place], [address], 09/24/2023 13:12:31 09/23/19 24 09/24/2023 CBC WITH DIFFE RENTI AL/PL ATELE T lymphs 37 % notest ab. Not Available [facility] ([facility]) [address] [facility], [place], [address], 09/24/2023 13:12:31 09/23/19 24 09/24/2023 CBC WITH DIFFE RENTI AL/PL ATELE T monocytes 8 % notest ab. Not Available [facility] ([facility]) [address] [facility], [place], [address], 09/24/2023 13:12:31 09/23/19 24 09/24/2023 CBC WITH DIFFE RENTI AL/PL ATELE T eos 2 % notest ab. Not Available [facility] ([facility]) [address] [facility], [place], [address], 09/24/2023 13:12:31 09/23/19 24 09/24/2023 CBC WITH DIFFE RENTI AL/PL ATELE T basos 1 % notest ab. Not Available [facility] ([facility]) [address] [facility], [place], [address], 09/24/2023 13:12:31 09/23/19 24 09/24/2023 CBC WITH DIFFE RENTI AL/PL ATELE T neutrophils (absolute) 2.5 x10e3 /uL 1.4-7. 0 Not Available [facility] ([facility]) [address] [facility], [place], [address], 09/24/2023 13:12:31 09/23/19 24 09/24/2023 CBC WITH DIFFE RENTI AL/PL ATELE T lymphs (absolute) 1.8 x10e3 /uL 0.7-3. 1 Not Available [facility] ([facility]) [address] [facility], [place], [address], 09/24/2023 13:12:31 09/23/19 24 09/24/2023 CBC WITH DIFFE RENTI AL/PL ATELE T monocytes(ab solute) 0.4 x10e3 /uL 0.1-0. 9 Not Available [facility] ([facility]) [address] [facility], [place], [address], 09/24/2023 13:12:31 09/23/19 24 09/24/2023 CBC WITH DIFFE RENTI AL/PL ATELE T eos (absolute) 0.1 x10e3 /uL 0.0-0. 4 Not Available [facility] ([facility]) [address] [facility], [place], [address], 09/24/2023 13:12:31 09/23/19 24 09/24/2023 CBC WITH DIFFE RENTI AL/PL ATELE T baso (absolute) 0.1 x10e3 /uL 0.0-0. 2 Not Available [facility] ([facility]) [address] [facility], [place], [address], 09/24/2023 13:12:31 09/23/19 24 09/24/2023 CBC WITH DIFFE RENTI AL/PL ATELE T immature granulocytes 0 % notest ab. Not Available [facility] ([facility]) [address] [facility], [place], [address], 09/24/2023 13:12:31 09/23/19 24 09/24/2023 CBC WITH DIFFE RENTI AL/PL ATELE T immature grans (abs) 0.0 x10e3 /uL 0.0-0. 1 Not Available [facility] ([facility]) [address] [facility], [place], [address], 09/24/2023 13:12:31 09/23/19 24 09/24/2023 TRIIO DOTHY PRIMO E (T3), FREE triiodothyro nine (T3), free 2.5 pg/mL 2.0-4. 4 Not Available [facility] ([facility]) [address] [place], [address], 09/24/2023 13:12:32 09/23/19 24 09/24/2023 T4,FR EE(DI RECT) T4,free(dire ct) 1.17 NG/dL 0.82-1 .77 Not Available [facility] ([facility]) [address] [place], [address], 09/24/2023 13:12:33 05/24/19 25 05/25/2024 LIPID PANEL cholesterol, total 231 mg/dL 100-19 9 above high normal Not Available [facility] ([facility]) [address] [place], [address], 05/25/2024 07:07:53 05/24/19 25 05/25/2024 LIPID PANEL triglyceride s 96 mg/dL 0-149 Not Available [facility] ([facility]) [address] [place], [address], 05/25/2024 07:07:53 05/24/19 25 05/25/2024 LIPID PANEL HDL cholesterol 83 mg/dL >39 Not Available [facility] ([facility]) [address] [place], [address], 05/25/2024 07:07:53 05/24/19 25 05/25/2024 LIPID PANEL VLDL cholesterol chinedu 17 mg/dL 5-40 Not Available [facility] ([facility]) [address] [place], [address], 05/25/2024 07:07:53 05/24/19 25 05/25/2024 LIPID PANEL LDL chol calc ([facility]) 131 mg/dL 0-99 above high normal Not Available [facility] ([facility]) [address] [facility] [place], [address], 05/25/2024 07:07:53 05/24/19 25 05/25/2024 COMP. METAB OLIC PANEL (14) glucose 114 mg/dL 70-99 above high normal Not Available [facility] ([facility]) [address] [facility] [place], [address], 05/25/2024 07:07:54 05/24/19 25 05/25/2024 COMP. METAB OLIC PANEL (14) BUN 10 mg/dL 8-27 Not Available [facility] ([facility]) [address] [facility] [place], [address], 05/25/2024 07:07:54 05/24/19 25 05/25/2024 COMP. METAB OLIC PANEL (14) creatinine 0.66 mg/dL 0.57-1 .00 Not Available [facility] ([facility]) [address] [facility] [place], [address], 05/25/2024 07:07:54 05/24/19 25 05/25/2024 COMP. METAB OLIC PANEL (14) eGFR 91 mL/mi n/1.7 3 >59 Not Available [facility] ([facility]) [address] [facility] [place], [address], 05/25/2024 07:07:54 05/24/19 25 05/25/2024 COMP. METAB OLIC PANEL (14) BUN/creatini ne ratio 15 12-28 Not Available [facility] ([facility]) [address] [facility] [place], [address], 05/25/2024 07:07:54 05/24/19 25 05/25/2024 COMP. METAB OLIC PANEL (14) sodium 140 mmol/ L 134-14 4 Not Available [facility] ([facility]) [address] [facility] [place], [address], 05/25/2024 07:07:54 05/24/19 25 05/25/2024 COMP. METAB OLIC PANEL (14) potassium 4.6 mmol/ L 3.5-5. 2 Not Available [facility] ([facility]) [address] [facility], [place], [address], 05/25/2024 07:07:54 05/24/19 25 05/25/2024 COMP. METAB OLIC PANEL (14) chloride 102 mmol/ L 96-106 Not Available [facility] ([facility]) [address] [facility], [place], [address], 05/25/2024 07:07:54 05/24/19 25 05/25/2024 COMP. METAB OLIC PANEL (14) carbon dioxide, total 27 mmol/ L 20-29 Not Available [facility] ([facility]) [address] [facility], [place], [address], 05/25/2024 07:07:54 05/24/19 25 05/25/2024 COMP. METAB OLIC PANEL (14) calcium 9.6 mg/dL 8.7-10 .3 Not Available [facility] ([facility]) [address] [facility] [place], [address], 05/25/2024 07:07:54 05/24/19 25 05/25/2024 COMP. METAB OLIC PANEL (14) protein, total 6.6 g/dL 6.0-8. 5 Not Available [facility] ([facility]) [address] [facility] [place], [address], 05/25/2024 07:07:54 05/24/19 25 05/25/2024 COMP. METAB OLIC PANEL (14) albumin 4.4 g/dL 3.8-4. 8 Not Available [facility] ([facility]) [address] [facility], [place], [address], 05/25/2024 07:07:54 05/24/19 25 05/25/2024 COMP. METAB OLIC PANEL (14) globulin, total 2.2 g/dL 1.5-4. 5 Not Available [facility] ([facility]) [address] [facility], [place], [address], 05/25/2024 07:07:54 05/24/19 25 05/25/2024 COMP. METAB OLIC PANEL (14) bilirubin, total 0.9 mg/dL 0.0-1. 2 Not Available [facility] ([facility]) [address] [facility], [place], [address], 05/25/2024 07:07:54 05/24/19 25 05/25/2024 COMP. METAB OLIC PANEL (14) alkaline phosphatase 72 IU/L 44-121 Not Available [facility] ([facility]) [address] [facility], [place], [address], 05/25/2024 07:07:54 05/24/19 25 05/25/2024 COMP. METAB OLIC PANEL (14) AST (SGOT) 16 IU/L 0-40 Not Available [facility] ([facility]) [address] [facility], [place], [address], 05/25/2024 07:07:54 05/24/19 25 05/25/2024 COMP. METAB OLIC PANEL (14) ALT (SGPT) 11 IU/L 0-32 Not Available [facility] ([facility]) [address] [facility], [place], [address], 05/25/2024 07:07:54 10/03/19 24 10/03/2023 XR, knee No observ ation record ed. [facility] [address] , [place], [address], 10/15/2023 08:09:53 11/27/19 24 11/26/2023 CT, sinus es, w/o contr ast No observ ation record ed. [facility] [address], [place], [address], 12/09/2023 17:00:27 12/23/19 24 12/23/2023 MRI, brain + inter nal audit ory canal , w/wo contr ast No observ ation record ed. [facility] [address], [place], [address], 12/29/2023 17:09:20 02/26/20 24 02/26/2024 MAMMO , scree calixto, digit al, bilat eral No observ ation record ed. [facility] [address], [place], [address], 03/12/2024 14:57:54 04/02/20 24 04/01/2024 bone densi ty No observ ation record ed. [facility] [address], [place], [address], 04/15/2024 11:25:25 07/15/19 25 07/13/2024 nerve condu ction study No observ ation record ed. [facility] [address], [place], [address], 07/22/2024 15:22:02 09/29/19 25 09/28/2024 heari ng evalu ation * No observ ation record ed. [facility] [address], [place], [address], 10/13/2024 14:39:11 09/30/19 25 09/28/2024 nerve condu ction study No observ ation record ed. [facility] [address], [place], [address], 10/01/2024 15:27:32 Result Notes None recorded. Problems Name Problem SNOMED Code Status Onset Date Resolution Date Notes Provider Name and Address Organization Details Recorded Time [facility] [id number] Active 2023 Abdiel Collins MD Attn: Nitin cadet,[address] [facility], [place], [address], [facility] 4 22:07:04 Problem Notes None recorded. Procedures Surgical History Date Name Laterality Status Provider Name and Address Organization Details Recorded Time Tonsillectomy completed Vicente Jamison [place] 09/05/2023 11:54:46 Total hysterectomy completed Fercho Jamison [place] 09/05/2023 11:54:56 Imaging Results None recorded. Procedure Notes None recorded. Medical Equipment None Reported. Allergies Allergen ID Allergen Name Allergen Category Reaction Reaction Severity Criticality Documentation Date Start Date Code Code System Note Provider Name and Address Organization Details Recorded Time 614293 codeine medicatio n nausea Not available low 09/05/20232017 2670 RxNorm TELMA [place], [place] [facility] 5 14:04:27 Medications Name Sig Start Date Stop [...] Updated DateTime 5 146.69 cm 31.3 kg/m2 02837.4 7 g 94 % 94 % 84 /min 116 mm[Hg] 70 mm[Hg] Shade Khalil MA [facility] 5 14:28:41 Date Recorded Body height Body mass index (BMI) Body weight Oxygen saturation Oxygen saturation in Arterial blood by Pulse oximetry Heart rate Systolic blood pressure Diastolic blood pressure Provider Name and Address Organization Details Last Updated DateTime 4 149.86 cm 27.7 kg/m2 95536.1 5 g 97 % 97 % 67 /min 118 mm[Hg] 82 mm[Hg] Vicente Jamison MA [facility] 4 11:58:50 Date Recorded Body height Body mass index (BMI) Body weight Heart rate Oxygen saturation Oxygen saturation in Arterial blood by Pulse oximetry Systolic blood pressure Diastolic blood pressure Provider Name and Address Organization Details Last Updated DateTime 4 149.86 cm 27.3 kg/m2 18325.9 7 g 64 /min 96 % 96 % 100 mm[Hg] 60 mm[Hg] Kadi Llanes MA [facility] 4 11:58:23 Date Recorded Body height Body mass index (BMI) Body weight Heart rate Oxygen saturation Oxygen saturation in Arterial blood by Pulse oximetry Systolic blood pressure Diastolic blood pressure Provider Name and Address Organization Details Last Updated DateTime 4 149.86 cm 27.7 kg/m2 66404.1 5 g 67 /min 97 % 97 % 118 mm[Hg] 66 mm[Hg] Marisela Call MA [facility] 4 09:55:35 Date Recorded Body height Body mass index (BMI) Body weight Heart rate Oxygen saturation Oxygen saturation in Arterial blood by Pulse oximetry Systolic blood pressure Diastolic blood pressure Provider Name and Address Organization Details Last Updated DateTime 4 146.69 cm 29.2 kg/m2 95329.1 8 g 68 /min 92 % 92 % 126 mm[Hg] 64 mm[Hg] Marisela Call MA [facility] 4 14:46:57 Social History Question Answer Notes LastModified by Organizat ion Details LastModified Time Tobacco Smoking Status Never Smoker Vicente Jamison MA [facility] 09/05/2023 11:53:46 Do You Have An Advance [...] anxious, or unable to sleep at night)? [id number] Information not available 09/05/2023 Family History Relationship [...] Response Coronary Artery Disease N Other N High Blood Pressure N Atrial Fibrillation N Kidney or Bladder Problems N Thyroid Problems N GI Problems N Depression N COPD N Blood Clots N Skin Problems N Anemia N Heart Attack ([place]) N Anxiety Disorder N Diabetes N Muscle, [...] Time Influenza, high-dose, quadrivalent, PF 2 completed Vicente Jamison [place], [place] [facility] 11/19/2023 17:07:53 COVID-19, mRNA, LNP-S, PF, 30 mcg/0.3 mL dose 1 completed Vicente Jam[place] [facility] 11/19/2023 17:07:53 COVID-19, mRNA, LNP-S, PF, 30 mcg/0.3 mL dose 1 completed Vicente Jamison MA omer, [facility] 11/19/2023 17:07:53 pneumococcal polysaccharide PPV23 2 completed Vicente Jamison MA omer, [facility] 11/19/2023 17:07:53 Past Encounters Encounter ID Performer Location Encounter Start Date Encounter Closed Date Diagnosis/Indication Diagnosis SNOMED-CT Code Diagnosis ICD10 Code Diagnosis Note [id number] Abdiel Collins MD [facility] (Adult Med) [address] [place] [address] 09/05/2023 11:06:18 09/05/2023 12:23:02 Fatigue 79492708 R53.83 Screening for cardiovascular system disease 532701842 Z13.6 Screening mammography 24 519602 Z12.31 Postmenopausal state 764 21569 Z78.0 [id number] Abdiel Collins MD [facility] [place] [address] [place] [id number] 11/20/2023 11:44:08 11/20/2023 12:59:05 Overweight 999538435 E66.3 Dizziness 682741884 R42 Sinusitis 55297035 J32.9 [id number] Abdiel Collins MD [facility] [place] [address] [place] [id number] 12/25/2023 09:45:36 12/25/2023 10:47:12 Hyperlipidemia 54342034 E78.5 [id number] Abdiel Collins MD [facility] [place] [address] [place] [id number] 03/04/2024 14:26:00 03/04/2024 15:44:26 Overweight 282116391 E66.3 Hyperlipidemia 89584818 E78.5 [id number] Abdiel Collins MD [facility] [place] [address] [place] [id number] 07/08/2024 14:14:28 07/08/2024 15:15:31 Hyperlipidemia 90200375 E78.5 Paresthesi a of lower extremity 343922987 R20.2 Health Concerns Section Related Observation LastModified by Organization Detai ls LastModified Time None Recorded Concern Status LastModified by Organization Details LastModified Time None Recorded Advance Directives Directive Y: Payers Insurance Date Sequence Insurance Name Policy Number Policy Neri Covered Member ID Neri Member ID Guarantor Name 07/08/2024 1 [place] Heather Sibley [id number] Heather Sibley 07/08/2024 [place] [facility] Heather Sibley [id number] Heather Sibley 08/02/2024 2 [facility] HEALTH BENEFITS PLAN - OPEN ACCESS PLUS 77 Heather Sibley [id number] Heather Sibley Notes Date Note Type Note Provider Name and Address Organization Details Recorded Time 09/05/2023 text/html 72-year-old who comes in no medications have some osteoarthritis history of osteoporosis but does not remember when her last bone density was had a mammogram about a year ago Cologuard negative a couple years ago saw a lode miner blasting for her arthritis. Surgeries as listed tonsillectomy and hysterectomy family history is reviewed diabetes depression osteoporosis hypertension heart disease and breast cancer. not smoke does not drink stays active playing golf. She said a little bit of fatigue Abdiel Collins MD Attn: Accounting, [address] [place], [address], [place] [facility] 09/05/2023 22:26:03 11/20/2023 text/html She feels like i n a tunnel when she speaks. She does see the lode miner blasting for some arthritis osteoarthritis this feels like her sinuses are plugged up at times no ringing in her ears Abdiel Collins MD Attn: Accounting, [address] [facility], [place], [address], [place] [facility] 11/30/2023 20:45:14 12/25/2023 text/html she did see ENT MRI was unremarkable she has to call them for follow up and she has the same symptoms dyslipidemia she has not started the Lipitor yet Abdiel Collins MD Attn: Accounting, [address] [place], [address], [place] [facility] 12/25/2023 22:07:28 03/04/2024 text/html hyperlipidemia n eeds labs trying to follow a low-fat diet she still needs to see ENT for her dizziness Abdiel Collins MD Attn: Accounting[address] [facility], [place], [address], [facility] 03/07/2024 22:31:27 07/08/2024 text/html dyslipidemia too k herself off the atorvastatin does not like taking medications osteoporosis no bone pain numbness hands her dizziness improving slowly Abdiel Collins MD Attn: Accounting[address] [facility], [place], [address], [facility] 08/01/2024 22:02:57 OBGyn Episode No OBEpisode recorded.
--- OUTSIDE RECORDS SUMMARY | 2024-10-26 11:08 | XMS_ITS | Continuity of Care Document ---
Author Organization [facility] Address [address] [place] [address] Phone Care Team Providers Care Duct Installer Name Role Phone Terrence Hawthorne MD Unavailable Unavailable Procedures Procedure Date COVID-19, Amplified Probe Technique INFLUENZA, RAPID INFLUENZA B, RAPID - OFFICE LAB 020 OFFICE/OUTPATIENT VISIT NEW Advance Directives Directive Yes / No Effective Date File Name No Information Encounters Encounter Description Practice Location Reason(s) For Visit Diagnoses Date Provider Providers Copied on Encounter [facility], [address], [place], [place], [id number], [place] tel:[phone] [facility] No Information 0 Christoph Ybarra. [address] [place], [place], [id number], [place]. tel:[phone] OFFICE/OUTPAT IENT VISIT [facility], [address], [place], [place], [address], [place] tel:[phone] [facility] acute visit (chief complaint) Viral infection, unspecified 0 Emile Peterson. [address], [place], [place], [id number], [place]. tel:[phone] Referring Provider: Nicholas Baptiste, [address], [place], [address] . tel:[phone] Family History Family Member Type Diagnosis Age At Onset No Information Payers Payer name Insurance type Covered republican ID Authoriza tion(s) [employer] [id number] MEDICARE MB [id number] Social History Type Description Quantity Date Captured [...] COVID precaution. -Advised pt that I am operations specialist this weekend if symptoms worsens or anything changes to call me. Pt voiced understanding Related to Viral infection, unspecified Assessments Type Assessment Date No Information Patient Care Teams Name Effective Dates (start - stop) Status Members No Information
--- OUTSIDE RECORDS SUMMARY | 2024-10-26 11:08 | XMS_ITS | Clinical Summary ---
Author Organization [facility] Address [address] [place] [address] Care Team Providers Care Smoke Jumper Name Role Phone Robbie Collins MD Primary Care Provider [phone] [facility],non-owned Affiliates and Associated Physician Practices is amultiple site organization consisting of ambulatory clinics and hospital sitesin [place], [place], [place] and [place]. This disclosure is being madepursuant to the Care Everywhere program and may not contain all information available regarding this patient. Last updated 18.[facility] Allergies Active Allergy Reactions Criticality Noted Date [...] fluticasone propionate (Flonase) 50 MCG/ACT nasal spray [place] 2 (two) sprays into each nostril once [...] Insurance MEDICARE [employer] [facility] Care Teams Smoke Jumper Relationship Specialty Start Date End Date Robbie Collins MD [address] [place] [address] PCP - General Internal Medicine 5/30/24
--- OUTSIDE RECORDS SUMMARY | 2024-10-26 11:08 | XMS_ITS | Clinical Summary ---
Author Organization [facility] [address] Address [address] [place] [address] Care Team Providers Care Rug Setter [place] Name Role Phone Jessy Duron MD Primary [...] (07/26/2020 3:52 PM CDT): Requests referral to therapeutic strategy lead today. 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 PLAN MEDICARE [facility] MEDICARE [facility] Care Teams Rug Setter [place] Relationship Specialty Start Date End Date Jessy Duron MD [address] [place] [address] PCP - General Internal Medicine 06/19/20
--- OUTSIDE RECORDS SUMMARY | 2024-10-26 11:08 | XMS_ITS | Referral Summary ---
Author Organization [facility] [address] Address [address] [place] [address] Care Team Providers Care Eye Care Professional Name Role Phone Jessy Duron MD Primary [...] (07/26/2020 3:52 PM CDT): Requests referral to supervisor publications production today. 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
== END 2024-10-26 10:04 | disposition home or self-care (01) ==
LOC: ANHAUDIO 10:03
PROVIDERS: PCP Internal Medicine; Visit Provider Internal Medicine
DX: H90.3 Sensorineural hearing loss, bilateral (principal)
CPT/HCPCS: 92557; 92567; 99199

== ENCOUNTER 2025-05-04 07:29 | Outpatient (CLI) | payer MEDICARE, OTHER, SELFPAY ==
--- NOTE | ~2025-05-04 | MM_ITS ---
EXAMINATION: MM screening ankur BI w izabel HISTORY: Screening. TECHNIQUE: Craniocaudal and mediolateral oblique 3-D tomosynthesis images were obtained and synthetic 2-D images were generated. CAD analysis was submitted and interpreted. COMPARISON: 2023, 2021, and 2018 BREAST PARENCHYMAL COMPOSITION: Dense: The breasts are heterogeneously dense, which may obscure small masses. FINDINGS: No suspicious masses are seen. There are no suspicious calcifications. No unexplained architectural distortion is seen. There are no skin or nipple abnormalities identified. There is no adenopathy seen on the images submitted. IMPRESSION: No mammographic evidence to suggest malignancy is seen. The patient may return to screening mammography as per ACR guidelines. BI-RADS 1 - Negative. Reviewed, dictated and finalized at location A. ENGINEER
== END 2025-05-04 07:30 | disposition home or self-care (01) ==
PROVIDERS: PCP Internal Medicine; Visit Provider Internal Medicine
DX: Z12.31 Encounter for screening mammogram for malignant neoplasm of breast (principal)
CPT/HCPCS: 77063; 77067